=== PATIENT | male | born 1935 | race Caucasian/White ===

== ENCOUNTER 2018-08-21 09:19 | Inpatient (IN) | payer MEDICARE, OTHER ==
[2018-08-21] MEDS ORDERED: Albuterol/Ipratropium NEB.SOL* Albuterol 2.5 MG/Ipratropium 0.5 MG 3 ML INH ONE (09:34)
--- OUTSIDE RECORDS SUMMARY | 2018-08-21 09:43 | XMS REPORT | Continuity of Care Document ---
:1935 External Reference #:[id number] Author Name Gina Harding Care Team Providers Name Role Phone Kulwant Bowling D.O. Primary Care Physician Unavailable Payers Date Identification Numbers Payment Provider Subscriber Policy Number: [id number] Medicare Jack Fernando PayID: [id number] [address] [place] [address] Policy Number: [id number] For Life Jack Fernando PayID: [id number] [address] [place] [address] Advance Directives Description No Information Available Problems Description No Information Family History Date Family Member(s) Observation Comments Father Lung Cancer Was a smoker Father due to Lung Cancer () Mother Asthma Mother due to Asthma () Siblings 4 2 brothers and 2 sisters One brother has hx of colon cancer Social History Type Date Description Comments Sex Unknown Marital Status Lives With Daughter Occupation Retired Tobacco Use Start: Unknown End: Former Cigarette Smoker Smoked 4 ppd for 70 Unknown years Smoking Status Reviewed: 08/03/18 Former Cigarette Smoker Smoked 4 ppd for 70 years ETOH Use Denies alcohol use Tobacco Use Start: Unknown End: Patient is a former Unknown smoker Recreational Drug Use Denies Drug Use Exercise Type/Frequency Does not exercise Allergies, Adverse Reactions, Alerts Date Description Reaction Status Severity Comments 04/12/2018 Cefdinir Active 04/12/2018 Morphine Active 04/12/2018 Gabapentin Active Medications Medication Date Status Form Strength Qnty SIG Indications Ordering Provider Prednisone 06/04/ Active Tablets 10mg 60tab 1 tab in J44.1 Blanca 2019 s the morning RADHA David Anoro Ellipta 04/23/ Active Aerosol 62.5-25mc 60uni 1 J44.9 Ileana 2017 g/Inh ts inhalation Celia, MD daily Metoprolol 04/13/ Active Tablets ER 25mg 30tab 1 by mouth Ileana Succinate ER 2018 24HR s every day MD Celia Nebusal 04/12/ Active Nebulizer 3% 480ml 1 unit J47.9 Ileana 2018 twice daily MD Celia Prednisone 04/12/ Active Tablets 5mg 30tab 1 tab by J44.1 Ileana 2017 s mouth every MD Celia day every morning Linezolid 04/12/ Active Tablets 600mg 14tab 1 tab daily J44.1 Ileana 2018 s for 2 weeks MD Celia Furosemide / Active Tablets 40mg 1 by mouth Unknown 0000 every day Allopurinol / Active Tablets 300mg 1 by mouth Unknown 0000 every day Tamsulosin HCL / Active Capsules 0.4mg 1 by mouth Unknown 0000 every day Carisoprodol / Active Tablets 350mg 1 by mouth Unknown 0000 twice a day as needed spasm Tramadol HCL / Active Tablets 50mg 1-2 tablets Unknown 0000 by mouth every 6 hours as needed pain Eliquis / Active Tablets 5mg 1 by mouth Unknown 0000 twice a day Buspirone HCL / Active Tablets 10mg take 2 Unknown 0000 tablets by mouth two times daily As needed Promethazine / Active Tablets 25mg 1 by mouth Unknown HCL 0000 every 8 hours as needed nausea with headache Potassium / Active Tablets ER 10Meq 1 by mouth Unknown Chloride ER 0000 every day Famotidine / Active Tablets 20mg 1 by mouth Unknown 0000 every day Prilosec OTC / Active Tablets DR 20mg 1 by mouth Unknown 0000 every day Megestrol / Active Tablets 40mg 1 by mouth Unknown Acetate 0000 tid As needed Ipratropium / Active Solution 0.5-2.5(3 1 unit Unknown [place] 0000 )mg/3ML every 6 rol Sulfate hours as needed Proair HFA / Active Aerosol 108(90Bas 2 puffs by Unknown 0000 e) mouth every mcg/Act 4 hours as needed Oxygen / Active Misc please use Unknown 0000 o2 at 3l/min at night MGP / Active prn Unknown 0000 Polyethylene 00/00/ Active Packet 3350NF as needed Unknown Glycol 3350 0000 Centrum Silver / Active Tablets 1 by mouth Unknown 0000 every day Metoprolol 04/12/ Hx Tablets ER 25mg 90tab 1 by mouth Ileana Succinate 2017 - 24HR s every day MD Celia 2017 Citalopram / Hx Tablets 10mg 1 by mouth Unknown Hydrobromide 0000 - every day 2018 Mupirocin / Hx Ointment 2% apply once Unknown 0000 - daily to 2018 Spiriva / Hx Aerosol 2.5mcg/Ac 2 puffs Unknown Respimat 0000 - t every day 2017 Immunizations Description No Information Available Vital Signs Date Vital Result Comment 08/03/2018 8:54am Height 70 inches 5'10" Weight 201.00 lb Heart Rate 80 /min BP Systolic Sitting 136 mmHg Lue large cuff BP Diastolic Sitting 72 mmHg Lue large cuff Respiratory Rate 16 /min O2 % BldC Oximetry 94 % BMI (Body Mass Index) 28.8 kg/m2 06/04/2018 8:45am Height 70 inches 5'10" Weight 187.00 lb Heart Rate 92 /min BP Systolic Sitting 128 mmHg Lue regular cuff BP Diastolic Sitting 78 mmHg Lue regular cuff Respiratory Rate 16 /min O2 % BldC Oximetry 92 % 2LPM BMI (Body Mass Index) 26.8 kg/m2 04/12/2018 1:53pm Height 70 inches 5'10" Weight 178.00 lb Heart Rate 72 /min BP Systolic Sitting 110 mmHg BP Diastolic Sitting 62 mmHg Respiratory Rate 14 /min O2 % BldC Oximetry 94 % on 2 L pulse BMI (Body Mass Index) 25.5 kg/m2 Neck Circumference in inches 16 Results Description No Information Available Procedures Date Code Description Status 07/23/2018 68653 Diffusing Capacity Completed 07/23/2018 94736 Plethysmography Determination Lung Volumes & Per Airway Completed Resist 07/23/2018 06537 Pulmonary Function><Bronchodil Completed 05/28/2018 40181 Holter Monitor Review (24 hr) review & interp only Completed Encounters Type Date Location Provider Dx Diagnosis Office Visit 08/03/2018 [facility] Yang, J44.9 Chronic obstructive 9:15a [facility] Of pulmonary disease, 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 Take 5mg every other day for 1 week, then discontinue.R09.02 [id number] Bronchiectasis, uncomplicated
[2018-08-21] MEDS ORDERED: Levofloxacin 750 MG IVPREMIX(* 750 MG/150 ML BAG IVPB ONE (10:04)
[2018-08-21] MEDS ORDERED: ED Piperacillin/Tazobac 3.375 3.375 GM/100 ML PREMIX.SET IVPB ONE (10:04)
[2018-08-21] MEDS ORDERED: Vancomycin(*) 1,250 MG in NS 0.9% 250 ML* 250 ML IVPB ONE (10:04)
[2018-08-21 10:11] LABS: ABS Basophils 0.1 10^3/ul (0-0.2); ABS Eosinophils 0.4 10^3/ul (0-0.6); ABS Lymphocytes 1.9 10^3/ul (1.0-4.8); ABS Monocytes 1.1 10^3/ul (0-0.8); ABS Neutrophils 5.5 10^3/ul (1.5-7.7); ABS Nucleated RBC 0 10^3/ul; Eosinophil % 4.8 %; Hematocrit 34 % (36-46); Hemoglobin 10.9 g/dL (14.0-18.0); Lymphocyte % 21.1 %; Mean Corpuscular HGB Conc 32 g/dL (31-36); Mean Corpuscular Hemoglobin 30 pg (27-31); Mean Corpuscular Volume 95 fL (80-94); Mean Platelet Volume 7.7 fL (7.4-10.4); Nucleated Red Blood Cells % 0; Platelet Count 373 10^3/uL (150-450); Red Blood Count 3.58 10^6 /uL (4.18-5.48); Red Cell Distribution Width 16 % (10.5-15); White Blood Count 9.1 10^3/uL (3.5-10.8)
[2018-08-21 10:23] LABS: INR 1.51 (0.82-1.09)
[2018-08-21 10:29] LABS: Albumin 3.6 g/dL (3.2-5.2); Albumin/Globulin Ratio 1.1 (1-3); BUN/Creatinine Ratio 18.9 (8-20); C Reactive Protein 15.94 mg/L (<8.01); Calcium 9.3 mg/dL (8.6-10.3); EGFR African American 35.5 (>60); EGFR Non-African American 29.3 (>60); Globulin 3.4 g/dL (2-4); Potassium 4.9 mmol/L (3.5-5.0); Total Bilirubin 0.3 mg/dL (0.2-1.0)
[2018-08-21 10:31] LABS: Troponin I 0.05 ng/mL (<0.04)
[2018-08-21 10:34] LABS: Influenza A Molecular NEGATIVE (Negative); Influenza B Molecular NEGATIVE (Negative)
--- NOTE | 2018-08-21 11:52 | ED ---
Respiratory - HPI Summary HPI Summary: Patient is an 83-year-old male presenting to the ED from Dr. Yang's office with respiratory distress. She states she would like to have him admitted. He states over the past one week he has been having worsening shortness of breath with increased cough with production of yellow and green phlegm. He is unable to sleep through the night due to his respiratory distress. He remains on 3 L O2 and he states despite this he continues to feel short of breath. He denies any chest pain or palpitations. 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 fib. He denies any fevers, however is endorsing sweats and chills. He denies any weakness, but states his shortness of breath is making him difficult to complete day-to-day tasks. He lives at home. He has recently been placed on steroids with his last dose 1 week ago. He was also placed on antibiotics within the last 2 months. He states he has been dealing with these symptoms since last July. - History of Current Complaint Chief Complaint: EDShortnessOfBreath Stated Complaint: LUNG ISSUES PER FAMILY Time Seen by Provider: 08/21/18 09:25 Hx Obtained From: Patient Onset/Duration: Sudden Onset Timing: Constant Initial Severity: Severe Current Severity: Severe Pain Intensity: 0 Character: Cough (Productive) Sputum Amount: Small Sputum Color: Yellow Aggravating Factor(s): Nothing Alleviating Factor(s): Nothing Associated Signs and Symptoms: Negative - Risk Factors Status Asthmaticus Risk Factors: Recent Steroids Cardiac Risk Factors: Hypertension, Elevated Lipids Pseudomonas Risk Factors: Chronic Lung Disease - And chronic steroid use Tuberculosis Risk Factors: Corticosteriod Use - Additional Pertinent History Oxygen Devices Used Prior to Hospitalization: Nasal Cannula - 3 Recent Echo: No Recent Stress Test: No - Allergy/Home Medications Allergies/Adverse Reactions: Allergies Allergy/AdvReac Type Severity Reaction Status Date / Time cefdinir Allergy Unknown Verified 08/21/18 09:29 Reaction Details gabapentin Allergy Unknown Verified 08/21/18 09:29 Reaction Details morphine Allergy Unknown Verified 08/21/18 09:29 Reaction Details Home Medications: Home Medications ANORO 62.5/25 Ellipta DEVICE (NF) 1 inh DAILY 08/21/18 [History Confirmed ] Allopurinol TAB* [Zyloprim 300 MG TAB*] 300 mg PO DAILY 08/21/18 [History Confirmed 08/21/18] Apixaban* [Eliquis*] 5 mg PO BID 08/21/18 [History Confirmed 08/21/18] Carisoprodol TAB* [Soma TAB*] 350 mg PO BID PRN 08/21/18 [History Confirmed ] Duoneb (Albuterol 2.5 MG/Ipratropium 0.5 MG) 1 unit INH Q6H PRN 08/21/18 [ History Confirmed 08/21/18] Furosemide TAB* [Lasix TAB*] 40 mg PO DAILY 08/21/18 [History Confirmed 08/21/18 ] Megestrol Acetate 40 mg PO BID 08/21/18 [History Confirmed 08/21/18] Metoprolol Succinate XL TAB* [Toprol XL TAB*] 25 mg PO DAILY 08/21/18 [History Confirmed 08/21/18] Multivit-Min/FA/Lycopen/Lutein [Centrum Silver Men Tablet] 1 tab PO DAILY [History Confirmed 08/21/18] Omeprazole Magnesium [Prilosec] 20 mg PO DAILY 08/21/18 [History Confirmed 08/21] Potassium Chlor TAB* [Klor Con ER TAB 10 MEQ*] 1 tab PO EVERY OTHER DAY [History Confirmed 08/21/18] Proair Respiclick 2 puff INH Q4H PRN 08/21/18 [History Confirmed 08/21/18] Promethazine TAB* [Phenergan Tab*] 1 tab PO Q8H PRN 08/21/18 [History Confirmed 08/21/18] Tamsulosin CAP* [Flomax CAP*] 0.4 mg PO DAILY 08/21/18 [History Confirmed ] busPIRone TAB* [Buspar TAB*] 2 tab PO BID PRN 08/21/18 [History Confirmed ] traMADol TAB* [Ultram*] 50 mg PO Q6HR PRN 08/21/18 [History Confirmed 08/21/18] PMH/Surg Hx/FS Hx/Imm Hx Previously Healthy: No - bronchiectasis and chronic lung disease Respiratory History: Reports: Hx Chronic Obstructive Pulmonary Disease (COPD) Denies: Hx Asthma - Immunization History Date of Influenza Vaccine: 03/2018 Hx Pertussis Vaccination: No Immunizations Up to Date: Yes Infectious Disease History: No Infectious Disease History: Denies: Traveled Outside the [place] in Last 30 Days - Social History Occupation: Unemployed Lives: With Family Alcohol Use: None Hx Substance Use: No Substance Use Type: Reports: None Hx Tobacco Use: Yes Smoking Status (MU): Former Smoker Review of Systems Constitutional: Negative Negative: Fever, Chills, Fatigue Negative: Palpitations, Chest Pain Respiratory: Other Positive: Cough Negative: Abdominal Pain, Vomiting, Diarrhea, Nausea Genitourinary: Negative Positive: no symptoms reported, see HPI Negative: Arthralgia, Myalgia Skin: Negative Neurological: Negative All Other Systems Reviewed And Are Negative: Yes Physical Exam - Summary Physical Exam Summary: Appears in acute respiratory distress Unable to speak in full sentences Triage Information Reviewed: Yes Vital Signs On Initial Exam: Initial Vitals Temp Pulse Resp BP Pulse Ox 98.4 F 94 20 153/90 91 08/21/18 09:26 08/21/18 09:26 08/21/18 09:26 08/21/18 09:26 08/21/18 09:26 Vital Signs Reviewed: Yes Appearance: Positive: Ill-Appearing Head/Face: Positive: Normal Head/Face Inspection Neck: Positive: No Lymphadenopathy Respiratory/Lung Sounds: Positive: Breath Sounds Present, Rhonchi, Unable to speak in full sentences, Fatigue Cardiovascular: Positive: Pulses are Symmetrical in both Upper and Lower Extremities Musculoskeletal: Positive: Normal, Strength/ROM Intact Neurological: Positive: Speech Normal Psychiatric: Positive: Affect/Mood Appropriate Diagnostics - Vital Signs Vital Signs Temp Pulse Resp BP Pulse Ox 08/21/18 09:45 80 22 126/75 94 08/21/18 09:38 20 08/21/18 09:34 75 18 99 08/21/18 09:30 80 13 156/67 95 08/21/18 09:26 98.4 F 94 20 153/90 91 - Laboratory Lab Results: Lab Results 08/21/18 08/21/18 08/21/18 Range/Units 09:57 09:57 09:57 WBC 9.1 (3.5-10.8) 10^3/uL RBC 3.58 L (4.18-5.48) 10^6 /uL Hgb 10.9 L (14.0-18.0) g/dL Hct 34 L (36-46) % MCV 95 H (80-94) fL MCH 30 (27-31) pg MCHC 32 (31-36) g/dL RDW 16 H (10.5-15) % Plt Count 373 (150-450) 10^3/uL MPV 7.7 (7.4-10.4) fL Neut % (Auto) 61.0 % Lymph % (Auto) 21.1 % [place] % (Auto) 11.9 % Eos % (Auto) 4.8 % Baso % (Auto) 1.2 % Absolute Neuts (auto) 5.5 (1.5-7.7) 10^3/ul Absolute Lymphs (auto) 1.9 (1.0-4.8) 10^3/ul Absolute Monos (auto) 1.1 H (0-0.8) 10^3/ul Absolute Eos (auto) 0.4 (0-0.6) 10^3/ul Absolute Basos (auto) 0.1 (0-0.2) 10^3/ul Absolute Nucleated RBC 0 10^3/ul Nucleated RBC % 0 INR (Anticoag Therapy) 1.51 H (0.82-1.09) Sodium 139 (135-145) mmol/L Potassium 4.9 (3.5-5.0) mmol/L Chloride 106 (101-111) mmol/L Carbon Dioxide 26 (22-32) mmol/L Anion Gap 7 (2-11) mmol/L BUN 41 H (6-24) mg/dL Creatinine 2.17 H (0.67-1.17) mg/dL Est GFR ( Amer) 35.5 (>60) Est GFR (Non-Af Amer) 29.3 (>60) BUN/Creatinine Ratio 18.9 (8-20) Glucose 87 (70-100) mg/dL Lactic Acid (0.5-2.0) mmol/L Calcium 9.3 (8.6-10.3) mg/dL Total Bilirubin 0.30 (0.2-1.0) mg/dL AST 16 (13-39) U/L ALT 12 (7-52) U/L Alkaline Phosphatase 107 H (34-104) U/L Troponin I 0.05 H* (<0.04) ng/mL C-Reactive Protein 15.94 H (<8.01) mg/L B-Natriuretic Peptide (<=100) pg/mL Total Protein 7.0 (6.4-8.9) g/dL Albumin 3.6 (3.2-5.2) g/dL Globulin 3.4 (2-4) g/dL Albumin/Globulin Ratio 1.1 (1-3) Influenza A (Rapid) (Negative) Influenza B (Rapid) (Negative) 08/21/18 08/21/18 08/21/18 Range/Units 09:57 09:57 09:57 WBC (3.5-10.8) 10^3/uL RBC (4.18-5.48) 10^6 /uL Hgb (14.0-18.0) g/dL Hct (36-46) % MCV (80-94) fL MCH (27-31) pg MCHC (31-36) g/dL RDW (10.5-15) % Plt Count (150-450) 10^3/uL MPV (7.4-10.4) fL Neut % (Auto) % Lymph % (Auto) % [place] % (Auto) % Eos % (Auto) % Baso % (Auto) % Absolute Neuts (auto) (1.5-7.7) 10^3/ul Absolute Lymphs (auto) (1.0-4.8) 10^3/ul Absolute Monos (auto) (0-0.8) 10^3/ul Absolute Eos (auto) (0-0.6) 10^3/ul Absolute Basos (auto) (0-0.2) 10^3/ul Absolute Nucleated RBC 10^3/ul Nucleated RBC % INR (Anticoag Therapy) (0.82-1.09) Sodium (135-145) mmol/L Potassium (3.5-5.0) mmol/L Chloride (101-111) mmol/L Carbon Dioxide (22-32) mmol/L Anion Gap (2-11) mmol/L BUN (6-24) mg/dL Creatinine (0.67-1.17) mg/dL Est GFR ( Amer) (>60) Est GFR (Non-Af Amer) (>60) BUN/Creatinine Ratio (8-20) Glucose (70-100) mg/dL Lactic Acid 1.4 (0.5-2.0) mmol/L Calcium (8.6-10.3) mg/dL Total Bilirubin (0.2-1.0) mg/dL AST (13-39) U/L ALT (7-52) U/L Alkaline Phosphatase (34-104) U/L Troponin I (<0.04) ng/mL C-Reactive Protein (<8.01) mg/L B-Natriuretic Peptide 21 (<=100) pg/mL Total Protein (6.4-8.9) g/dL Albumin (3.2-5.2) g/dL Globulin (2-4) g/dL Albumin/Globulin Ratio (1-3) Influenza A (Rapid) Negative (Negative) Influenza B (Rapid) Negative (Negative) Result Diagrams: 08/21/18 09:57 08/21/18 09:57 Lab Statement: Any lab studies that have been ordered have been reviewed, and results considered in the medical decision making process. Disposition - Course Course Of Treatment: During his course of treatment, the patient is evaluated for worsening shortness of breath over the past 1 week. He denies any fevers, sweats, chills. He does have a history of MRSA. He was at Dr. Yang's office today due to worsening shortness of breath and was sent here for further evaluation. Dr. Yang states she would like him admitted and have serial DuoNeb 's placed. She is also recommending broad-spectrum antibiotics. On arrival, he is noted to be 90% on room air and 95% on 3 L. He appears to be in respiratory distress however and is having cough with production. Sputum culture ordered. MRSA nasal swab and strep pneumo antigen ordered. Chest x- ray shows fibrotic changes with no evidence of a pneumonia. He is at risk for pseudomonas as he has a history of bronchiectasis, recent steroid use and recent antibiotics use so on arrival he is given Levaquin, Zosyn and albuterol for broad-spectrum coverage. He is also given 2 DuoNeb's well in the ED. He is feeling somewhat improved, however discussed case with Dr. Peters, hospitalist who agrees to admit for further evaluation of this shortness of breath. - Differential Dx - Cardiopulmonary Differential Diagnoses - Cardiopulmonary: Other - Pneumonia, shortness of breath , strep pneumo, influenza - Diagnoses Provider Diagnoses: Shortness of breath - Physician Notifications Discussed Care Of Patient With: Teresa Peters Instructed by Provider To: Admit As Inpatient - Critical Care Time Critical Care Time: 30-74 min Discharge - Sign-Out/Discharge Documenting (check all that apply): Patient Departure Patient Received Moderate/Deep Sedation with Procedure: No - Discharge Plan Condition: Fair Disposition: ADMITTED TO [facility] Referrals: Kulwant Bowling DO [Primary Care Provider] - - Billing Disposition and Condition Condition: FAIR Disposition: Admitted to [facility]
[2018-08-21] MEDS ORDERED: Acetaminophen TAB* 325 MG PO PRN (12:28)
[2018-08-21] MEDS ORDERED: traMADol TAB* 50 MG PO PRN (12:32)
[2018-08-21] MEDS ORDERED: Albuterol HFA INHALER* 8 gm MDI INH PRN (12:32)
[2018-08-21] MEDS ORDERED: Carisoprodol TAB* 350 MG PO PRN (12:32)
[2018-08-21] MEDS ORDERED: Piperacillin/Tazobac (*) 3.375 GM BAG ONE (12:45)
[2018-08-21] MEDS ORDERED: methylPREDNISolone 125 MG* 2 ML VIAL IV ONE (12:58)
[2018-08-21 15:55] LABS: Urine Appearance Clear; Urine Bilirubin Negative (Negative); Urine Blood Negative (Negative); Urine Color Yellow; Urine Glucose Negative (Negative); Urine Ketones Negative (Negative); Urine Nitrite Negative (Negative); Urine Protein Negative (Negative); Urine Specific Gravity 1.012 (1.010-1.030); Urine Urobilinogen Negative (Negative)
--- NOTE | 2018-08-21 16:29 | HP ---
CC: Dr. Bowling; Dr. Yang * HISTORY AND PHYSICAL: DATE OF ADMISSION: 08/21/18 PROVIDER: Sharon Jarrell NP PRIMARY CARE PROVIDER: Dr. Bowling. ATTENDING PHYSICIAN: Dr. Teresa Peters * (dictated by Sharon Jarrell NP). CHIEF COMPLAINT: Shortness of breath. HISTORY OF PRESENT ILLNESS: Mr. Fernando is an 83-year-old male with past medical history significant for COPD; history of an VT, unknown when; history of DVT diagnosed in December of 2017, currently on Eliquis; history of MRSA in the right lower leg; history of BPH; GERD; chronic kidney disease, stage 3, who presented to the emergency room from Dr. Yang's office with complaints of progressively worsening shortness of breath. The patient reports that he has had increased shortness of breath for 2 to 3 weeks that has progressively become worse. He reports increased sputum production, increased cough with, he reports, yellow sputum. He also reports fevers on and off for approximately 2 weeks, increased fatigue, and decreased appetite for the past week. He also reports chest pain associated with cough and tenderness to the left side of the chest with palpation. Daughter reports the patient has had O2 saturations on 3 L at home of 86% to 88%. She also reports that the patient is chronically on O2 at 3 L 24 hours a day. Due to progressively worsening shortness of breath and recommendations by Dr. Yang, he presented to the emergency room for further evaluation. While in the emergency room, the patient had routine lab work drawn. He was found to have an elevated troponin of 0.05. The patient denies any chest pain other than with cough. He also had a chest x-ray that showed pulmonary fibrosis with COPD. Labs appeared to be at baseline for his kidney disease. At this time, we were asked to admit him due to his increased shortness of breath. PAST MEDICAL HISTORY: 1. COPD. 2. History of coronary artery disease, questionable VT in the past. 3. History of DVT, diagnosed last December of 2017, on chronic Eliquis. 4. MRSA of the right lower leg, diagnosed in 2018. 5. History of BPH. 6. GERD. 7. Chronic kidney disease, stage 3. PAST SURGICAL HISTORY: 1. Back surgery x3. 2. Right heel cancer removed. 3. History of vein stripping. 4. Bronchoscopy x2, last in March. 5. Tonsillectomy. MEDICATIONS: Home medications include: 1. Tramadol 50 mg p.o. q.6 hours p.r.n. pain. 2. Tamsulosin 0.4 mg p.o. at bedtime. 3. Omeprazole 20 mg p.o. daily. 4. Multivitamin 1 tablet p.o. daily. 5. Megestrol acetate 40 mg p.o. b.i.d. 6. Furosemide 40 mg p.o. daily. 7. ProAir RespiClick 2 puffs q.4 hours p.r.n. 8. DuoNeb 1 nebulizer every 6 hours as needed for shortness of breath. 9. Potassium chloride 1 tablet every other day. 10. Apixaban 5 mg p.o. b.i.d. 11. Soma 350 mg p.o. at bedtime. 12. Allopurinol 300 mg p.o. daily. 13. Metoprolol succinate 12.5 mg p.o. b.i.d. 14. Anoro 1 inhaled daily. ALLERGIES: Allergy to CEFDINIR, GABAPENTIN, and MORPHINE. FAMILY HISTORY: Father with a history of pacemaker at age 72, from lung cancer at the age of 79. No reported history of diabetes within the family. Cancer, father with history of lung cancer and at age 79. Brother from colon cancer at age 50. SOCIAL HISTORY: The patient reports that he quit smoking approximately 1 year ago. Prior to that, he smoked 2 to 4 packs a day for 70 years. Denies any alcohol or illicit drug use. He is retired. He is . He currently lives with his stepdaughter. Surrogate decision maker in the event he is unable to make his own decisions is his stepdaughter, Reyna. He is a full code. REVIEW OF SYSTEMS: He does report fevers on and off for x2 weeks with decreased appetite and does report chest pain with cough. No edema to the lower extremities. He does report productive cough with yellow secretions that has increased. He reports progressively worsening shortness of breath. Denies any hemoptysis. No nausea, vomiting, diarrhea, or abdominal pain. Denies any gross hematuria, dysuria, or focal weakness or sensory loss. He does report chronic right leg weakness. He does wear brace to the right ankle. Denies any visual complaints, dysphagia, arthralgias, myalgias, rashes, lesions, open sores , psychosis, or anxiety. PHYSICAL EXAMINATION GENERAL: At this time, Mr. Fernando is an 83-year-old male. He is alert and oriented, sitting on the stretcher in the emergency room. He is well developed and well nourished. He does appear to be mildly short of breath, resting on the stretcher. VITAL SIGNS: Blood pressure is 137/65, heart rate is 85, respirations 17, O2 saturation is 96%, temperature is 98.4. He is on 3 L nasal cannula. HEENT: Head is atraumatic, normocephalic. Eyes: EOMs are intact. Sclerae anicteric and not pale. Oral mucosa appeared to be moist. NECK: Supple. LUNGS: With expiratory wheezes and scattered rhonchi throughout. Respirations are slightly labored. He is on O2 at 3 L nasal cannula. ABDOMEN: Soft and nontender. Bowel sounds are present x4. EXTREMITIES: He is able to move all 4 extremities. There is no clubbing or cyanosis. NEUROLOGIC: He is awake, alert, and oriented x3. Speech is clear and thought process is intact. There are no gross focal deficits. SKIN: Dry and intact. DIAGNOSTIC STUDIES/LAB DATA: WBC is 9.1, RBC is 3.58, hemoglobin 10.9, hematocrit 34, platelet count was 373. INR was 1.51. Sodium 139, potassium 4.9 , chloride 106, carbon dioxide 26, anion gap of 7, BUN of 41, creatinine 2.17 which renal function appears to be at baseline, GFR 29.3, glucose 87, lactic acid 1.4, calcium 9.3. Total bili 0.30, AST is 16, ALT is 12, alkaline phosphatase was 107. Troponin was 0.05. C-reactive protein was 15.94. BNP 21. Flu A and B were both negative. He had a chest x-ray, radiologist's impression: COPD with pulmonary fibrotic changes. He had an electrocardiogram, which showed sinus rhythm with PACs. ASSESSMENT AND PLAN: Mr. Fernando is an 83-year-old male with past medical history significant for reported myocardial infarction in the past; chronic obstructive pulmonary disease; deep venous thrombosis, diagnosed in December of 2017, on chronic Eliquis; history of methicillin-resistant Staphylococcus aureus in the right leg; benign prostatic hyperplasia; gastroesophageal reflux disease; chronic kidney disease, stage 3, who presented to the emergency room from Dr. Yang's office with increased shortness of breath. He will be admitted inpatient for: 1. Acute on chronic hypoxic respiratory failure, suspect this is related to chronic obstructive pulmonary disease exacerbation. We will continue O2 via nasal cannula 3 L and albuterol and Atrovent nebulizers as needed for shortness of breath. We will continue his home inhalers as previously prescribed. I will give him Solu-Medrol 125 mg IV x1 and then continue him on 40 mg IV q.12 hours. He will be placed on Levaquin 750 mg IV q.48 hours due to his renal function. The patient does have a history of methicillin-resistant Staphylococcus aureus related to cellulitis in his right lower leg in the past. If his symptoms do not appear to be improving, I would recommend adding vancomycin or coverage for methicillin- resistant Staphylococcus aureus. 2. Elevated troponins. I suspect this is related to demand ischemia from his chronic obstructive pulmonary disease and increased respiratory distress. We will continue to trend his troponins and repeat an EKG in the a.m. 3. Chronic kidney disease, stage 3. We will continue to monitor his BMP. We will repeat the BMP in the morning and adjust medications as needed. 4. History of coronary artery disease. We will continue metoprolol 12.5 mg p.o. b.i.d. as previously prescribed. 5. He has a history of methicillin-resistant Staphylococcus aureus in a leg wound. He has no current open leg wounds at this time. 6. FEN. He can have a regular diet. 7. Code status: He is a full code. 8. DVT prophylaxis: We will continue him on Eliquis 2.5 mg p.o. b.i.d. as a renal dosing as the patient is over the age of 82 and creatinine is above 1.5. 9. Disposition: The patient will be inpatient on medical telemetry floor and placed on tele. TIME SPENT: On this admission was approximately 60 minutes, greater than half that time was spent at the bedside obtaining my history and physical, the other half of the time was spent going my plan of care and implementing my plan of care. I have discussed this with my attending, Dr. Teresa Peters; she is in agreement with my plan. SHARON JARRELL, GEOPHYSICAL PROSPECTING PERMIT AGENT [id number]/[facility] #: [id number] [facility] FACILITYCecil
[2018-08-21] MEDS: Multivitamins/Minerals TAB PO SCH (17:38)
[2018-08-21] MEDS: Tamsulosin CAP* 0.4 MG PO SCH (20:46)
[2018-08-21] MEDS: Metoprolol Succinate XL TAB* 25 MG PO SCH (20:47)
[2018-08-21] MEDS: Apixaban* 2.5 MG TAB PO SCH (20:47)
[2018-08-21] MEDS: Albuterol/Ipratropium NEB.SOL* Albuterol 2.5 MG/Ipratropium 0.5 MG 3 ML INH PRN (21:33)
[2018-08-22] MEDS: Melatonin 3 MG TAB PO PRN ×2 (00:03→22:00)
[2018-08-22] MEDS ORDERED: methylPREDNISolone SOD 40 MG* 1 ML VIAL IV SCH (06:00)
[2018-08-22 06:35] LABS: Hematocrit 34 % (36-46); Hemoglobin 11.1 g/dL (14.0-18.0); Mean Corpuscular HGB Conc 33 g/dL (31-36); Mean Corpuscular Hemoglobin 31 pg (27-31); Mean Corpuscular Volume 94 fL (80-94); Mean Platelet Volume 7.6 fL (7.4-10.4); Platelet Count 348 10^3/uL (150-450); Red Cell Distribution Width 15 % (10.5-15); White Blood Count 7.6 10^3/uL (3.5-10.8)
[2018-08-22 06:55] LABS: BUN/Creatinine Ratio 17.6 (8-20); Calcium 9.7 mg/dL (8.6-10.3); EGFR African American 35.7 (>60); EGFR Non-African American 29.5 (>60)
[2018-08-22 06:57] LABS: ABS Basophils 0 10^3/ul (0-0.2); ABS Eosinophils 0 10^3/ul (0-0.6); ABS Lymphocytes 0.9 10^3/ul (1.0-4.8); ABS Monocytes 0.1 10^3/ul (0-0.8); ABS Neutrophils 6.4 10^3/ul (1.5-7.7); ABS Nucleated RBC 0 10^3/ul; Eosinophil % 0 %; Lymphocyte % 11.6 %; Nucleated Red Blood Cells % 0; Potassium 5.5 mmol/L (3.5-5.0)
[2018-08-22] MEDS: PTO: Umeclidin/Vilant 62.5 MDI 62.5/25 mcg 14 INH ELLIPTA DEVICE INH SCH (07:29)
[2018-08-22] MEDS: Albuterol/Ipratropium NEB.SOL* Albuterol 2.5 MG/Ipratropium 0.5 MG 3 ML INH PRN (07:30)
[2018-08-22] MEDS: Pantoprazole TAB * 40 MG TAB PO SCH (08:42)
[2018-08-22] MEDS: Metoprolol Succinate XL TAB* 25 MG PO SCH ×2 (08:42→21:59)
[2018-08-22] MEDS: Allopurinol TAB* 300 MG PO SCH (08:42)
[2018-08-22] MEDS: Apixaban* 2.5 MG TAB PO SCH ×2 (08:42→22:00)
[2018-08-22] MEDS: Albuterol/Ipratropium NEB.SOL* Albuterol 2.5 MG/Ipratropium 0.5 MG 3 ML INH SCH ×3 (15:50→23:13)
[2018-08-22] MEDS: guaiFENesin ER TAB 600 MG PO SCH ×2 (16:02→22:00)
[2018-08-22] MEDS: methylPREDNISolone SOD 40 MG* 1 ML VIAL IV SCH ×2 (16:02→22:00)
[2018-08-22] MEDS ORDERED: NS 0.9% 500 ML* 500 ML IV ONE (17:16)
[2018-08-22] MEDS: Multivitamins/Minerals TAB PO SCH (17:21)
--- NOTE | 2018-08-22 17:49 | PN ---
Subjective Date of Service: 08/22/18 Interval History: Patient seen and examined. Extremely wheezy this AM, per RN, no nebs were given overnight. Breath sounds course, patient is tachypneic. Afebrile, no sweats or chills. Course cough, not very productive, patient has difficulty expectorating. Objective Active Medications: Acetaminophen (Tylenol Tab*) 650 mg PO Q4H PRN PRN Reason: FEVER/PAIN Albuterol (Ventolin 2.5 Mg/3 Ml Neb.Sarah*) 2.5 mg INH [id number] AWAKE PRN PRN Reason: sob/wheezing Albuterol (Ventolin Hfa Inhaler*) 2 puff INH Q6H PRN PRN Reason: SHORTNESS OF BREATH Albuterol/Ipratropium (Duoneb (Albuterol 2.5 Mg/Ipratropium 0.5 Mg)) 1 neb INH [id number] AWAKE [facility] Stop: 08/23/18 03:01 Last Admin: 08/22/18 15:50 Dose: 1 neb Allopurinol (Zyloprim Tab*) 300 mg PO DAILY [facility] Last Admin: 08/22/18 08:42 Dose: 300 mg Apixaban (Eliquis*) 2.5 mg PO BID [facility] Last Admin: 08/22/18 08:42 Dose: 2.5 mg Buspirone HCl (Buspar Tab*) 20 mg PO BID PRN PRN Reason: PAIN Carisoprodol (Soma Tab*) 350 mg PO BID PRN PRN Reason: SPASMS Last Admin: 08/21/18 20:46 Dose: 350 mg Guaifenesin (Mucinex*) 600 mg PO BID [facility] Last Admin: 08/22/18 16:02 Dose: 600 mg Sodium Chloride (Ns 0.9% 500 Ml*) 500 mls @ 500 mls/hr IV ONCE ONE Stop: 08/22/18 18:15 Melatonin (Melatonin) 3 mg PO BEDTIME PRN PRN Reason: SLEEP Last Admin: 08/22/18 00:03 Dose: 3 mg Methylprednisolone Sodium Succinate (Solu-Medrol 40 Mg) 40 mg IV Q8H [facility] Last Admin: 08/22/18 16:02 Dose: 40 mg Metoprolol Succinate (Toprol Xl Tab*) 12.5 mg PO BID [facility] Last Admin: 08/22/18 08:42 Dose: 12.5 mg Multivitamins/Minerals (Theragran/Minerals Tab*) 1 tab PO 1800 [facility] Last Admin: 08/22/18 17:21 Dose: 1 tab Pantoprazole Sodium (Protonix Tab*) 40 mg PO DAILY [facility] Last Admin: 08/22/18 08:42 Dose: 40 mg Pharmacy Consult (Zosyn Per Pharmacy*) 1 note FOLLOW UP .ZOSYN PER PHARMACY [facility] Potassium Chloride (Klor Con Er Tab*) 10 meq PO EVERY OTHER DAY [facility] Tamsulosin HCl (Flomax Cap*) 0.4 mg PO BEDTIME [facility] Last Admin: 08/21/18 20:46 Dose: 0.4 mg Tramadol HCl (Ultram*) 50 mg PO Q6HR PRN PRN Reason: PAIN Umeclidinium/Vilanterol (Anoro 62.5/25 Ellipta Device (Nf)) 1 inh INH DAILY [facility] Last Admin: 08/22/18 07:29 Dose: Not Given Vital Signs - 8 hr 08/22/18 08/22/18 08/22/18 11:03 11:05 15:13 Temperature 98.1 F 98.3 F 97.6 F Pulse Rate 107 107 105 Respiratory 14 14 20 Rate Blood Pressure 134/63 134/63 142/62 (mmHg) O2 Sat by Pulse 95 95 96 Oximetry Oxygen Devices in Use Now: Nasal Cannula Appearance: alert, appears tired, NAD Eyes: No Scleral Icterus, PERRLA Ears/Nose/Mouth/Throat: NL Teeth, Lips, Gums, Mucous Membranes Moist Neck: NL Appearance and Movements; NL JVP, Trachea Midline Respiratory: - - tachypneic, course throughout lung jackson, poor air entry, wheezes Cardiovascular: NL Sounds; No Murmurs; No JVD - tachycardia Abdominal: NL Sounds; No Tenderness; No Distention Extremities: No Edema, No Clubbing, Cyanosis Skin: No Rash or Ulcers Neurological: Alert and Oriented x 3, NL Sensation Nutrition: Taking PO's Result Diagrams: 08/22/18 06:08 08/22/18 06:08 Additional Lab and Data: Lab Results 08/21/18 08/21/18 08/21/18 Range/Units 09:57 09:57 09:57 WBC 9.1 (3.5-10.8) 10^3/uL RBC 3.58 L (4.18-5.48) 10^6 /uL Hgb 10.9 L (14.0-18.0) g/dL Hct 34 L (36-46) % MCV 95 H (80-94) fL MCH 30 (27-31) pg MCHC 32 (31-36) g/dL RDW 16 H (10.5-15) % Plt Count 373 (150-450) 10^3/uL MPV 7.7 (7.4-10.4) fL Neut % (Auto) 61.0 % Lymph % (Auto) 21.1 % [place] % (Auto) 11.9 % Eos % (Auto) 4.8 % Baso % (Auto) 1.2 % Absolute Neuts (auto) 5.5 (1.5-7.7) 10^3/ul Absolute Lymphs (auto) 1.9 (1.0-4.8) 10^3/ul Absolute Monos (auto) 1.1 H (0-0.8) 10^3/ul Absolute Eos (auto) 0.4 (0-0.6) 10^3/ul Absolute Basos (auto) 0.1 (0-0.2) 10^3/ul Absolute Nucleated RBC 0 10^3/ul Nucleated RBC % 0 INR (Anticoag Therapy) 1.51 H (0.82-1.09) Sodium 139 (135-145) mmol/L Potassium 4.9 (3.5-5.0) mmol/L Chloride 106 (101-111) mmol/L Carbon Dioxide 26 (22-32) mmol/L Anion Gap 7 (2-11) mmol/L BUN 41 H (6-24) mg/dL Creatinine 2.17 H (0.67-1.17) mg/dL Est GFR ( Amer) 35.5 (>60) Est GFR (Non-Af Amer) 29.3 (>60) BUN/Creatinine Ratio 18.9 (8-20) Glucose 87 (70-100) mg/dL Lactic Acid (0.5-2.0) mmol/L Calcium 9.3 (8.6-10.3) mg/dL Total Bilirubin 0.30 (0.2-1.0) mg/dL AST 16 (13-39) U/L ALT 12 (7-52) U/L Alkaline Phosphatase 107 H (34-104) U/L Troponin I 0.05 H* (<0.04) ng/mL C-Reactive Protein 15.94 H (<8.01) mg/L B-Natriuretic Peptide (<=100) pg/mL Total Protein 7.0 (6.4-8.9) g/dL Albumin 3.6 (3.2-5.2) g/dL Globulin 3.4 (2-4) g/dL Albumin/Globulin Ratio 1.1 (1-3) Influenza A (Rapid) (Negative) Influenza B (Rapid) (Negative) 08/21/18 08/21/18 08/21/18 Range/Units 09:57 09:57 09:57 WBC (3.5-10.8) 10^3/uL RBC (4.18-5.48) 10^6 /uL Hgb (14.0-18.0) g/dL Hct (36-46) % MCV (80-94) fL MCH (27-31) pg MCHC (31-36) g/dL RDW (10.5-15) % Plt Count (150-450) 10^3/uL MPV (7.4-10.4) fL Neut % (Auto) % Lymph % (Auto) % [place] % (Auto) % Eos % (Auto) % Baso % (Auto) % Absolute Neuts (auto) (1.5-7.7) 10^3/ul Absolute Lymphs (auto) (1.0-4.8) 10^3/ul Absolute Monos (auto) (0-0.8) 10^3/ul Absolute Eos (auto) (0-0.6) 10^3/ul Absolute Basos (auto) (0-0.2) 10^3/ul Absolute Nucleated RBC 10^3/ul Nucleated RBC % INR (Anticoag Therapy) (0.82-1.09) Sodium (135-145) mmol/L Potassium (3.5-5.0) mmol/L Chloride (101-111) mmol/L Carbon Dioxide (22-32) mmol/L Anion Gap (2-11) mmol/L BUN (6-24) mg/dL Creatinine (0.67-1.17) mg/dL Est GFR ( Amer) (>60) Est GFR (Non-Af Amer) (>60) BUN/Creatinine Ratio (8-20) Glucose (70-100) mg/dL Lactic Acid 1.4 (0.5-2.0) mmol/L Calcium (8.6-10.3) mg/dL Total Bilirubin (0.2-1.0) mg/dL AST (13-39) U/L ALT (7-52) U/L Alkaline Phosphatase (34-104) U/L Troponin I (<0.04) ng/mL C-Reactive Protein (<8.01) mg/L B-Natriuretic Peptide 21 (<=100) pg/mL Total Protein (6.4-8.9) g/dL Albumin (3.2-5.2) g/dL Globulin (2-4) g/dL Albumin/Globulin Ratio (1-3) Influenza A (Rapid) Negative (Negative) Influenza B (Rapid) Negative (Negative) Microbiology and Other Data: Microbiology 08/21/18 17:23 Aerobic Blood Culture - Preliminary Blood Venous No Growth Day 1 Anaerobic Blood Culture - Preliminary No Growth Day 1 08/21/18 09:57 Aerobic Blood Culture - Preliminary Blood Venous No Growth Day 1 Anaerobic Blood Culture - Preliminary No Growth Day 1 08/21/18 23:00 Legionella Urinary Antigen - Final Urine Negative Legionella Antigen 08/21/18 15:30 Streptococcus pneumoniae Ag Screen - Final Urine Negative S. pneumo Antigen 08/21/18 13:05 Nasal Screen MRSA (PCR) - Final Nasal Mrsa Detected 08/21/18 09:57 Gram Stain - Final Sputum Diagnostic Imaging: Patient Name: LETICIA MARIO Medical Record#: [id number] Ordering Physician: Romelia VALDEZ Acct.#: [id number] : 1935 Age: 83 Sex: M Location: EMERGENCY DEPARTMENT Exam Date: 08/21/18930 ADM Status: REG ER Order Information: CHEST PA & LAT 2 S Accession Number: [id number] CPT: 07778 HISTORY: SOB/PNA COMPARISONS: July 23, 2018 VIEWS: 4: Frontal dual-energy and lateral views of the chest. FINDINGS: CARDIOMEDIASTINAL SILHOUETTE: The cardiomediastinal silhouette is normal. ELDA: The elda are normal. PLEURA: The costophrenic angles are sharp. No pleural abnormalities are noted. LUNG PARENCHYMA: There is hyperinflation with flattening of the diaphragm and expansion of the AP diameter of the chest. There is a diffuse pattern of fine reticular opacification. ABDOMEN: The upper abdomen is clear. There is no subphrenic gas. BONES AND SOFT TISSUES: No bone or soft tissue abnormalities are noted. OTHER: None. IMPRESSION: COPD WITH PULMONARY FIBROTIC CHANGES. <Electronically signed by Ajith Pirce MD in OV> 08/21/18 1018 Dictated By: Ajith Price MD Dictated Date/Time: 08/21/18 1018 Transcribed Date/Time: 08/21/18 1016 Copy to: CC:Kulwant Bowling DO; Jonathan Hayden MD; Romelia VALDEZ Imaging [facility] - [place] [facility] [address] [address] ph ([phone]) ph ([phone]) ph ([phone]) This report is only to be considered final once signed by the Provider(s) as displayed in the "<Electronically Signed by >" field (s). Absence of a signature indicates the report is in a draft status and still needs to be finalized. In the event this document was created by someone other than the signing Provider, the individual initiating the document will be listed in the "Entered by:" or "Dictated by:" jackson. 1 of 1 Assess/Plan/Problems-Billing Assessment: This is an 83 year old male with history of tobacco abuse and lung fibrosis that presented to Dr. Yang yesterday with complaints of SOB increasing over 2 weeks and was referred to ED for admission. - Patient Problems (1) COPD (chronic obstructive pulmonary disease) Code(s): J44.9 - CHRONIC OBSTRUCTIVE PULMONARY DISEASE, UNSPECIFIED SNOMED Code(s): 94035655 Comment: - Severe, with exacerbation and fibrotic changes - Follows with Dr. Yang as an outpatient - Change nebs to Q4H through today scheduled with flutter valve - Add mucinex BID - DC levaquin given advanced age and renal disease - Follow sputum culture but will cover for strep, pseudomonas, MRSA with empiric zosyn and renally dosed vanco - Increase IV steroids to Q8h (2) History of coronary artery disease Code(s): Z86.79 - PERSONAL HISTORY OF OTHER DISEASES OF THE CIRCULATORY SYSTEM SNOMED Code(s): 701980979 Comment: - With tachycardia since admission which is likely 2/2 hypoxia - Trial small fluid bolus, hold diuretic, BNP<100, continue low dose BB (3) Hx MRSA infection Code(s): Z86.14 - PERSONAL HISTORY OF METHICILLIN RESIS STAPH INFECTION SNOMED Code(s): 221176318 Comment: - RLE wounds are closed - follow sputum culture - continue vanco until culture available (4) CKD (chronic kidney disease) stage 3, GFR 30-59 ml/min Code(s): N18.3 - CHRONIC KIDNEY DISEASE, STAGE 3 (MODERATE) SNOMED Code(s): 137711793 Comment: - Creat 2.16, similar to baseline in March - Give fluid bolus and monitor renal function in AM (5) History of DVT of lower extremity Code(s): Z86.718 - PERSONAL HISTORY OF OTHER VENOUS THROMBOSIS AND EMBOLISM SNOMED Code(s): 124451257 Comment: - Continue eliquis Status and Disposition: Inpatient, 2-3 days treatment for IV atbx and steroids.
[2018-08-22] MEDS ORDERED: Vancomycin per Pharmacy* NOTE FOLLOW UP PRN (17:51)
[2018-08-22] MEDS ORDERED: Zosyn per Pharmacy* NOTE FOLLOW UP SCH (18:00)
[2018-08-22] MEDS ORDERED: ZOSYN 3.375 GM x ONE DOSE over 30 miuntes IVPB ×2 (18:00)
[2018-08-22] MEDS ORDERED: Vancomycin 1500 MG IV - x ONCE IVPB ONE ×2 (18:30)
[2018-08-22] MEDS: busPIRone TAB* 10 MG PO PRN (22:00)
[2018-08-22] MEDS: Tamsulosin CAP* 0.4 MG PO SCH (22:00)
[2018-08-22] MEDS: ZOSYN 3.375 GM Q8H per EXTENDED INFUSION IVPB SCH ×2 (23:39)
[2018-08-23] MEDS: Albuterol/Ipratropium NEB.SOL* Albuterol 2.5 MG/Ipratropium 0.5 MG 3 ML INH SCH (03:23)
[2018-08-23] MEDS: ZOSYN 3.375 GM Q8H per EXTENDED INFUSION IVPB SCH ×6 (05:41→23:27)
[2018-08-23] MEDS: methylPREDNISolone SOD 40 MG* 1 ML VIAL IV SCH ×3 (08:12→23:25)
[2018-08-23] MEDS: Metoprolol Succinate XL TAB* 25 MG PO SCH ×2 (08:12→21:21)
[2018-08-23] MEDS: Pantoprazole TAB * 40 MG TAB PO SCH (08:12)
[2018-08-23] MEDS: guaiFENesin ER TAB 600 MG PO SCH ×2 (08:12→21:20)
[2018-08-23] MEDS: Allopurinol TAB* 300 MG PO SCH (08:12)
[2018-08-23] MEDS: Potassium Chlor TAB* 10 MEQ TAB.ER PO SCH (08:13)
[2018-08-23] MEDS: Apixaban* 2.5 MG TAB PO SCH ×2 (08:13→21:22)
[2018-08-23] MEDS: PTO: Umeclidin/Vilant 62.5 MDI 62.5/25 mcg 14 INH ELLIPTA DEVICE INH SCH ×2 (08:13→10:22)
[2018-08-23] MEDS: Albuterol 2.5 MG/3 ML NEB.SOL* (0.083%) INH PRN ×2 (10:21→20:53)
[2018-08-23] MEDS ORDERED: Levofloxacin 750 MG IVPREMIX(* 750 MG/150 ML BAG IVPB SCH (13:00)
[2018-08-23] MEDS ORDERED: Vancomycin(*) 1,250 MG in NS 0.9% 250 ML* 250 ML IVPB SCH (14:00)
--- NOTE | 2018-08-23 17:38 | PN ---
Subjective Date of Service: 08/23/18 Interval History: Patient seen and examined. No acute overnight events. Patient tolerated nebs overnight and feels his breathing has improved today. Still having trouble expectorating but is less dyspneic. Denies chest pain, no acute SOB and no distress. Denies fevers or chills. No urinary complaints. Objective Active Medications: Acetaminophen (Tylenol Tab*) 650 mg PO Q4H PRN PRN Reason: FEVER/PAIN Albuterol (Ventolin 2.5 Mg/3 Ml Neb.Sarah*) 2.5 mg INH [id number] AWAKE PRN PRN Reason: sob/wheezing Last Admin: 08/23/18 10:21 Dose: 2.5 mg Albuterol (Ventolin Hfa Inhaler*) 2 puff INH Q6H PRN PRN Reason: SHORTNESS OF BREATH Allopurinol (Zyloprim Tab*) 300 mg PO DAILY [facility] Last Admin: 08/23/18 08:12 Dose: 300 mg Apixaban (Eliquis*) 2.5 mg PO BID [facility] Last Admin: 08/23/18 08:13 Dose: 2.5 mg Buspirone HCl (Buspar Tab*) 20 mg PO BID PRN PRN Reason: PAIN Last Admin: 08/22/18 22:00 Dose: 20 mg Carisoprodol (Soma Tab*) 350 mg PO BID PRN PRN Reason: SPASMS Last Admin: 08/21/18 20:46 Dose: 350 mg Guaifenesin (Mucinex*) 600 mg PO BID [facility] Last Admin: 08/23/18 08:12 Dose: 600 mg Piperacillin Sod/Tazobactam (Sod 3.375 gm/ Sodium Chloride) 100 mls @ 25 mls/ hr IVPB Q8H [facility] Last Admin: 08/23/18 14:30 Dose: 25 mls/hr Vancomycin HCl 1,250 mg/ (Sodium Chloride) 250 mls @ 166.667 mls/hr IVPB Q24H [facility] Last Admin: 08/23/18 14:30 Dose: 166.667 mls/hr Melatonin (Melatonin) 3 mg PO BEDTIME PRN PRN Reason: SLEEP Last Admin: 08/22/18 22:00 Dose: 3 mg Methylprednisolone Sodium Succinate (Solu-Medrol 40 Mg) 40 mg IV Q8H [facility] Last Admin: 08/23/18 14:31 Dose: 40 mg Metoprolol Succinate (Toprol Xl Tab*) 12.5 mg PO BID [facility] Last Admin: 08/23/18 08:12 Dose: 12.5 mg Multivitamins/Minerals (Theragran/Minerals Tab*) 1 tab PO 1800 [facility] Last Admin: 08/22/18 17:21 Dose: 1 tab Pantoprazole Sodium (Protonix Tab*) 40 mg PO DAILY [facility] Last Admin: 08/23/18 08:12 Dose: 40 mg Pharmacy Consult (Zosyn Per Pharmacy*) 1 note FOLLOW UP .ZOSYN PER PHARMACY [facility] Pharmacy Consult (Vancomycin Per Pharmacy*) 1 note FOLLOW UP . PRN PRN Reason: PER PROTOCOL Pharmacy Profile Note (Vancomycin Trough Check) 1 note FOLLOW UP 1330 ONE Stop: 08/25/18 13:31 Potassium Chloride (Klor Con Er Tab*) 10 meq PO EVERY OTHER DAY [facility] Last Admin: 08/23/18 08:13 Dose: 10 meq Tamsulosin HCl (Flomax Cap*) 0.4 mg PO BEDTIME [facility] Last Admin: 08/22/18 22:00 Dose: 0.4 mg Tramadol HCl (Ultram*) 50 mg PO Q6HR PRN PRN Reason: PAIN Umeclidinium/Vilanterol (Anoro 62.5/25 Ellipta Device (Nf)) 1 inh INH DAILY [facility] Last Admin: 08/23/18 10:22 Dose: 1 inh Vital Signs - 8 hr 08/23/18 08/23/18 08/23/18 10:24 11:17 14:00 Temperature 97.8 F 97.5 F Pulse Rate 102 109 103 Respiratory 16 17 20 Rate Blood Pressure 124/54 136/63 (mmHg) O2 Sat by Pulse 97 96 95 Oximetry Oxygen Devices in Use Now: Nasal Cannula Appearance: alert, NAD Eyes: No Scleral Icterus, PERRLA Ears/Nose/Mouth/Throat: NL Teeth, Lips, Gums, Mucous Membranes Moist Neck: NL Appearance and Movements; NL JVP, Trachea Midline Respiratory: - - course breath sounds bilaterally with improved air entry at the apices and upper airways, still with wheeze Cardiovascular: NL Sounds; No Murmurs; No JVD - mild tachycardia Abdominal: NL Sounds; No Tenderness; No Distention Extremities: No Clubbing, Cyanosis, - - mild edema Skin: No Rash or Ulcers Neurological: Alert and Oriented x 3, NL Sensation Nutrition: Taking PO's Result Diagrams: 08/22/18 06:08 08/22/18 17:39 Additional Lab and Data: Lab Results 08/21/18 08/21/18 08/21/18 Range/Units 09:57 09:57 09:57 WBC 9.1 (3.5-10.8) 10^3/uL RBC 3.58 L (4.18-5.48) 10^6 /uL Hgb 10.9 L (14.0-18.0) g/dL Hct 34 L (36-46) % MCV 95 H (80-94) fL MCH 30 (27-31) pg MCHC 32 (31-36) g/dL RDW 16 H (10.5-15) % Plt Count 373 (150-450) 10^3/uL MPV 7.7 (7.4-10.4) fL Neut % (Auto) 61.0 % Lymph % (Auto) 21.1 % [place] % (Auto) 11.9 % Eos % (Auto) 4.8 % Baso % (Auto) 1.2 % Absolute Neuts (auto) 5.5 (1.5-7.7) 10^3/ul Absolute Lymphs (auto) 1.9 (1.0-4.8) 10^3/ul Absolute Monos (auto) 1.1 H (0-0.8) 10^3/ul Absolute Eos (auto) 0.4 (0-0.6) 10^3/ul Absolute Basos (auto) 0.1 (0-0.2) 10^3/ul Absolute Nucleated RBC 0 10^3/ul Nucleated RBC % 0 INR (Anticoag Therapy) 1.51 H (0.82-1.09) Sodium 139 (135-145) mmol/L Potassium 4.9 (3.5-5.0) mmol/L Chloride 106 (101-111) mmol/L Carbon Dioxide 26 (22-32) mmol/L Anion Gap 7 (2-11) mmol/L BUN 41 H (6-24) mg/dL Creatinine 2.17 H (0.67-1.17) mg/dL Est GFR ( Amer) 35.5 (>60) Est GFR (Non-Af Amer) 29.3 (>60) BUN/Creatinine Ratio 18.9 (8-20) Glucose 87 (70-100) mg/dL Lactic Acid (0.5-2.0) mmol/L Calcium 9.3 (8.6-10.3) mg/dL Total Bilirubin 0.30 (0.2-1.0) mg/dL AST 16 (13-39) U/L ALT 12 (7-52) U/L Alkaline Phosphatase 107 H (34-104) U/L Troponin I 0.05 H* (<0.04) ng/mL C-Reactive Protein 15.94 H (<8.01) mg/L B-Natriuretic Peptide (<=100) pg/mL Total Protein 7.0 (6.4-8.9) g/dL Albumin 3.6 (3.2-5.2) g/dL Globulin 3.4 (2-4) g/dL Albumin/Globulin Ratio 1.1 (1-3) Influenza A (Rapid) (Negative) Influenza B (Rapid) (Negative) 08/21/18 08/21/18 08/21/18 Range/Units 09:57 09:57 09:57 WBC (3.5-10.8) 10^3/uL RBC (4.18-5.48) 10^6 /uL Hgb (14.0-18.0) g/dL Hct (36-46) % MCV (80-94) fL MCH (27-31) pg MCHC (31-36) g/dL RDW (10.5-15) % Plt Count (150-450) 10^3/uL MPV (7.4-10.4) fL Neut % (Auto) % Lymph % (Auto) % [place] % (Auto) % Eos % (Auto) % Baso % (Auto) % Absolute Neuts (auto) (1.5-7.7) 10^3/ul Absolute Lymphs (auto) (1.0-4.8) 10^3/ul Absolute Monos (auto) (0-0.8) 10^3/ul Absolute Eos (auto) (0-0.6) 10^3/ul Absolute Basos (auto) (0-0.2) 10^3/ul Absolute Nucleated RBC 10^3/ul Nucleated RBC % INR (Anticoag Therapy) (0.82-1.09) Sodium (135-145) mmol/L Potassium (3.5-5.0) mmol/L Chloride (101-111) mmol/L Carbon Dioxide (22-32) mmol/L Anion Gap (2-11) mmol/L BUN (6-24) mg/dL Creatinine (0.67-1.17) mg/dL Est GFR ( Amer) (>60) Est GFR (Non-Af Amer) (>60) BUN/Creatinine Ratio (8-20) Glucose (70-100) mg/dL Lactic Acid 1.4 (0.5-2.0) mmol/L Calcium (8.6-10.3) mg/dL Total Bilirubin (0.2-1.0) mg/dL AST (13-39) U/L ALT (7-52) U/L Alkaline Phosphatase (34-104) U/L Troponin I (<0.04) ng/mL C-Reactive Protein (<8.01) mg/L B-Natriuretic Peptide 21 (<=100) pg/mL Total Protein (6.4-8.9) g/dL Albumin (3.2-5.2) g/dL Globulin (2-4) g/dL Albumin/Globulin Ratio (1-3) Influenza A (Rapid) Negative (Negative) Influenza B (Rapid) Negative (Negative) Microbiology and Other Data: Microbiology 08/21/18 17:23 Aerobic Blood Culture - Preliminary Blood Venous No Growth Day 1 Anaerobic Blood Culture - Preliminary No Growth Day 1 08/21/18 09:57 Aerobic Blood Culture - Preliminary Blood Venous No Growth Day 1 Anaerobic Blood Culture - Preliminary No Growth Day 1 08/21/18 23:00 Legionella Urinary Antigen - Final Urine Negative Legionella Antigen 08/21/18 15:30 Streptococcus pneumoniae Ag Screen - Final Urine Negative S. pneumo Antigen 08/21/18 13:05 Nasal Screen MRSA (PCR) - Final Nasal Mrsa Detected 08/21/18 09:57 Gram Stain - Final Sputum Diagnostic Imaging: Patient Name: LETICIA MARIO Medical Record#: [id number] Ordering Physician: Romelia VALDEZ Acct.#: [id number] : 1935 Age: 83 Sex: M Location: EMERGENCY DEPARTMENT Exam Date: 08/21/18930 ADM Status: REG ER Order Information: CHEST PA & LAT 2 VWS Accession Number: [id number] CPT: 98780 HISTORY: SOB/PNA COMPARISONS: July 23, 2018 VIEWS: 4: Frontal dual-energy and lateral views of the chest. FINDINGS: CARDIOMEDIASTINAL SILHOUETTE: The cardiomediastinal silhouette is normal. ELDA: The elda are normal. PLEURA: The costophrenic angles are sharp. No pleural abnormalities are noted. LUNG PARENCHYMA: There is hyperinflation with flattening of the diaphragm and expansion of the AP diameter of the chest. There is a diffuse pattern of fine reticular opacification. ABDOMEN: The upper abdomen is clear. There is no subphrenic gas. BONES AND SOFT TISSUES: No bone or soft tissue abnormalities are noted. OTHER: None. IMPRESSION: COPD WITH PULMONARY FIBROTIC CHANGES. <Electronically signed by Ajith Price MD in [place]> 08/21/18 1018 Dictated By: Ajith Price MD Dictated Date/Time: 08/21/18 1018 Transcribed Date/Time: 08/21/18 1016 Copy to: CC:Kulwant Bowling DO; Jonathan Hayden MD; Romelia VALDEZ Imaging - [facility] Imaging - [facility] Imaging - [facility] [address] [address] ph ([phone]) ph ([phone]) ph ([phone]) This report is only to be considered final once signed by the Provider(s) as displayed in the "<Electronically Signed by >" field (s). Absence of a signature indicates the report is in a draft status and still needs to be finalized. In the event this document was created by someone other than the signing Provider, the individual initiating the document will be listed in the "Entered by:" or "Dictated by:" jackson. 1 of 1 Assess/Plan/Problems-Billing Assessment: This is an 83 year old male with history of tobacco abuse and lung fibrosis that presented to Dr. Yang yesterday with complaints of SOB increasing over 2 weeks and was referred to ED for admission. - Patient Problems (1) COPD (chronic obstructive pulmonary disease) Code(s): J44.9 - CHRONIC OBSTRUCTIVE PULMONARY DISEASE, UNSPECIFIED SNOMED Code(s): 55896659 Comment: - Severe, with exacerbation and fibrotic changes - Follows with Dr. Yang as an outpatient - Continue duonebs, now PRN with flutter valve, mucinex BID - DC levaquin given advanced age and renal disease - continue to cover for strep, pseudomonas, MRSA with empiric zosyn and renally dosed vanco until sputum culture available - Continue IV steroids to Q8h (2) History of coronary artery disease Code(s): Z86.79 - PERSONAL HISTORY OF OTHER DISEASES OF THE CIRCULATORY SYSTEM SNOMED Code(s): 787181445 Comment: - With tachycardia since admission which is likely 2/2 hypoxia - Trial small fluid bolus, hold diuretic, BNP<100, continue low dose BB (3) Hx MRSA infection Code(s): Z86.14 - PERSONAL HISTORY OF METHICILLIN RESIS STAPH INFECTION SNOMED Code(s): 922626885 Comment: - RLE wounds are closed - follow sputum culture - continue vanco until culture available (4) CKD (chronic kidney disease) stage 3, GFR 30-59 ml/min Code(s): N18.3 - CHRONIC KIDNEY DISEASE, STAGE 3 (MODERATE) SNOMED Code(s): 648795222 Comment: - Creat 2.16, similar to baseline in March - Give fluid bolus and monitor renal function in AM (5) History of DVT of lower extremity Code(s): Z86.718 - PERSONAL HISTORY OF OTHER VENOUS THROMBOSIS AND EMBOLISM SNOMED Code(s): 707407226 Comment: - Continue eliquis Status and Disposition: Inpatient, 2-3 days treatment for IV atbx and steroids.
[2018-08-23] MEDS: Multivitamins/Minerals TAB PO SCH (18:09)
[2018-08-23] MEDS: Tamsulosin CAP* 0.4 MG PO SCH (21:20)
[2018-08-23] MEDS: busPIRone TAB* 10 MG PO PRN (21:21)
[2018-08-23] MEDS: Melatonin 3 MG TAB PO PRN (21:22)
[2018-08-24] MEDS: ZOSYN 3.375 GM Q8H per EXTENDED INFUSION IVPB SCH ×4 (05:16→13:19)
[2018-08-24] MEDS: Albuterol 2.5 MG/3 ML NEB.SOL* (0.083%) INH PRN ×2 (05:48→23:16)
[2018-08-24 06:08] LABS: ABS Basophils 0 10^3/ul (0-0.2); ABS Eosinophils 0 10^3/ul (0-0.6); ABS Lymphocytes 1.1 10^3/ul (1.0-4.8); ABS Monocytes 0.5 10^3/ul (0-0.8); ABS Neutrophils 11.4 10^3/ul (1.5-7.7); ABS Nucleated RBC 0 10^3/ul; Eosinophil % 0.1 %; Hematocrit 34 % (36-46); Hemoglobin 10.4 g/dL (14.0-18.0); Lymphocyte % 8.2 %; Mean Corpuscular HGB Conc 30 g/dL (31-36); Mean Corpuscular Hemoglobin 30 pg (27-31); Mean Corpuscular Volume 100 fL (80-94); Mean Platelet Volume 7.9 fL (7.4-10.4); Nucleated Red Blood Cells % 0.1; Platelet Count 355 10^3/uL (150-450); Red Blood Count 3.43 10^6 /uL (4.18-5.48); Red Cell Distribution Width 16 % (10.5-15)
[2018-08-24 06:17] LABS: Albumin 3.4 g/dL (3.2-5.2); Albumin/Globulin Ratio 1.1 (1-3); BUN/Creatinine Ratio 22.2 (8-20); Calcium 8.8 mg/dL (8.6-10.3); EGFR African American 41.6 (>60); EGFR Non-African American 34.4 (>60); Globulin 3.2 g/dL (2-4); Potassium 4.3 mmol/L (3.5-5.0); Total Bilirubin 0.3 mg/dL (0.2-1.0); Total Protein 6.6 g/dL (6.4-8.9)
[2018-08-24] MEDS: PTO: Umeclidin/Vilant 62.5 MDI 62.5/25 mcg 14 INH ELLIPTA DEVICE INH SCH ×2 (08:26→08:30)
[2018-08-24] MEDS: Apixaban* 2.5 MG TAB PO SCH ×2 (08:30→20:50)
[2018-08-24] MEDS: methylPREDNISolone SOD 40 MG* 1 ML VIAL IV SCH ×2 (08:30→15:40)
[2018-08-24] MEDS: Pantoprazole TAB * 40 MG TAB PO SCH (08:30)
[2018-08-24] MEDS: Metoprolol Succinate XL TAB* 25 MG PO SCH ×2 (08:30→20:50)
[2018-08-24] MEDS: guaiFENesin ER TAB 600 MG PO SCH ×2 (08:30→20:51)
[2018-08-24] MEDS: Allopurinol TAB* 300 MG PO SCH (08:31)
[2018-08-24] MEDS: Sulfamethox/Trimethoprim SS 400/80* TAB PO SCH ×2 (12:17→20:50)
[2018-08-24] MEDS ORDERED: Magnesium Sulfate 1 GM IV* 1 GM/100 ML BAG IV ONE (14:52)
--- NOTE | 2018-08-24 17:35 | PN ---
Subjective Date of Service: 08/24/18 Interval History: Patient seen and examined. Feeling much improved, able to expectorate sputum today and feels breathing is better. Denies fevers or chills, no headache, no acute SOB, no chest pains. No further complaints. Remains oxygen dependent. Objective Active Medications: Acetaminophen (Tylenol Tab*) 650 mg PO Q4H PRN PRN Reason: FEVER/PAIN Albuterol (Ventolin 2.5 Mg/3 Ml Neb.Sarah*) 2.5 mg INH [id number] AWAKE PRN PRN Reason: sob/wheezing Last Admin: 08/24/18 05:48 Dose: 2.5 mg Albuterol (Ventolin Hfa Inhaler*) 2 puff INH Q6H PRN PRN Reason: SHORTNESS OF BREATH Allopurinol (Zyloprim Tab*) 300 mg PO DAILY [facility] Last Admin: 08/24/18 08:31 Dose: 300 mg Apixaban (Eliquis*) 2.5 mg PO BID [facility] Last Admin: 08/24/18 08:30 Dose: 2.5 mg Buspirone HCl (Buspar Tab*) 20 mg PO BID PRN PRN Reason: PAIN Last Admin: 08/23/18 21:21 Dose: 20 mg Carisoprodol (Soma Tab*) 350 mg PO BID PRN PRN Reason: SPASMS Last Admin: 08/21/18 20:46 Dose: 350 mg Guaifenesin (Mucinex*) 600 mg PO BID [facility] Last Admin: 08/24/18 08:30 Dose: 600 mg Melatonin (Melatonin) 3 mg PO BEDTIME PRN PRN Reason: SLEEP Last Admin: 08/23/18 21:22 Dose: 3 mg Metoprolol Succinate (Toprol Xl Tab*) 12.5 mg PO BID [facility] Last Admin: 08/24/18 08:30 Dose: 12.5 mg Multivitamins/Minerals (Theragran/Minerals Tab*) 1 tab PO 1800 [facility] Last Admin: 08/23/18 18:09 Dose: 1 tab Pantoprazole Sodium (Protonix Tab*) 40 mg PO DAILY [facility] Last Admin: 08/24/18 08:30 Dose: 40 mg Potassium Chloride (Klor Con Er Tab*) 10 meq PO EVERY OTHER DAY [facility] Last Admin: 08/23/18 08:13 Dose: 10 meq Prednisone (Deltasone Tab*) 60 mg PO DAILY [facility] Tamsulosin HCl (Flomax Cap*) 0.4 mg PO BEDTIME [facility] Last Admin: 08/23/18 21:20 Dose: 0.4 mg Tramadol HCl (Ultram*) 50 mg PO Q6HR PRN PRN Reason: PAIN Trimethoprim/Sulfamethoxazole (Bactrim Ss 400/80 Tab*) 1 tab PO BID [facility] Last Admin: 08/24/18 12:17 Dose: 1 tab Umeclidinium/Vilanterol (Anoro 62.5/25 Ellipta Device (Nf)) 1 inh INH DAILY [facility] Last Admin: 08/24/18 08:30 Dose: 1 inh Vital Signs - 8 hr 08/24/18 08/24/18 10:57 16:21 Temperature 97.4 F 97.6 F Pulse Rate 67 86 Respiratory 18 18 Rate Blood Pressure 133/70 130/63 (mmHg) O2 Sat by Pulse 97 97 Oximetry Oxygen Devices in Use Now: Nasal Cannula Appearance: alert, NAD Eyes: No Scleral Icterus, PERRLA Ears/Nose/Mouth/Throat: NL Teeth, Lips, Gums, Mucous Membranes Moist Neck: NL Appearance and Movements; NL JVP, Trachea Midline Respiratory: Symmetrical Chest Expansion and Respiratory Effort, - - remains course with improved aeration, less wheeze, still with scattered rhonchi Cardiovascular: NL Sounds; No Murmurs; No JVD, RRR, No Edema Abdominal: NL Sounds; No Tenderness; No Distention Extremities: No Edema, No Clubbing, Cyanosis Skin: No Rash or Ulcers, No Nodules or Sclerosis Neurological: Alert and Oriented x 3 Nutrition: Taking PO's Result Diagrams: 08/24/18 05:32 08/24/18 05:32 Additional Lab and Data: Lab Results 08/21/18 08/21/18 08/21/18 Range/Units 09:57 09:57 09:57 WBC 9.1 (3.5-10.8) 10^3/uL RBC 3.58 L (4.18-5.48) 10^6 /uL Hgb 10.9 L (14.0-18.0) g/dL Hct 34 L (36-46) % MCV 95 H (80-94) fL MCH 30 (27-31) pg MCHC 32 (31-36) g/dL RDW 16 H (10.5-15) % Plt Count 373 (150-450) 10^3/uL MPV 7.7 (7.4-10.4) fL Neut % (Auto) 61.0 % Lymph % (Auto) 21.1 % [place] % (Auto) 11.9 % Eos % (Auto) 4.8 % Baso % (Auto) 1.2 % Absolute Neuts (auto) 5.5 (1.5-7.7) 10^3/ul Absolute Lymphs (auto) 1.9 (1.0-4.8) 10^3/ul Absolute Monos (auto) 1.1 H (0-0.8) 10^3/ul Absolute Eos (auto) 0.4 (0-0.6) 10^3/ul Absolute Basos (auto) 0.1 (0-0.2) 10^3/ul Absolute Nucleated RBC 0 10^3/ul Nucleated RBC % 0 INR (Anticoag Therapy) 1.51 H (0.82-1.09) Sodium 139 (135-145) mmol/L Potassium 4.9 (3.5-5.0) mmol/L Chloride 106 (101-111) mmol/L Carbon Dioxide 26 (22-32) mmol/L Anion Gap 7 (2-11) mmol/L BUN 41 H (6-24) mg/dL Creatinine 2.17 H (0.67-1.17) mg/dL Est GFR ( Amer) 35.5 (>60) Est GFR (Non-Af Amer) 29.3 (>60) BUN/Creatinine Ratio 18.9 (8-20) Glucose 87 (70-100) mg/dL Lactic Acid (0.5-2.0) mmol/L Calcium 9.3 (8.6-10.3) mg/dL Total Bilirubin 0.30 (0.2-1.0) mg/dL AST 16 (13-39) U/L ALT 12 (7-52) U/L Alkaline Phosphatase 107 H (34-104) U/L Troponin I 0.05 H* (<0.04) ng/mL C-Reactive Protein 15.94 H (<8.01) mg/L B-Natriuretic Peptide (<=100) pg/mL Total Protein 7.0 (6.4-8.9) g/dL Albumin 3.6 (3.2-5.2) g/dL Globulin 3.4 (2-4) g/dL Albumin/Globulin Ratio 1.1 (1-3) Influenza A (Rapid) (Negative) Influenza B (Rapid) (Negative) 08/21/18 08/21/18 08/21/18 Range/Units 09:57 09:57 09:57 WBC (3.5-10.8) 10^3/uL RBC (4.18-5.48) 10^6 /uL Hgb (14.0-18.0) g/dL Hct (36-46) % MCV (80-94) fL MCH (27-31) pg MCHC (31-36) g/dL RDW (10.5-15) % Plt Count (150-450) 10^3/uL MPV (7.4-10.4) fL Neut % (Auto) % Lymph % (Auto) % [place] % (Auto) % Eos % (Auto) % Baso % (Auto) % Absolute Neuts (auto) (1.5-7.7) 10^3/ul Absolute Lymphs (auto) (1.0-4.8) 10^3/ul Absolute Monos (auto) (0-0.8) 10^3/ul Absolute Eos (auto) (0-0.6) 10^3/ul Absolute Basos (auto) (0-0.2) 10^3/ul Absolute Nucleated RBC 10^3/ul Nucleated RBC % INR (Anticoag Therapy) (0.82-1.09) Sodium (135-145) mmol/L Potassium (3.5-5.0) mmol/L Chloride (101-111) mmol/L Carbon Dioxide (22-32) mmol/L Anion Gap (2-11) mmol/L BUN (6-24) mg/dL Creatinine (0.67-1.17) mg/dL Est GFR ( Amer) (>60) Est GFR (Non-Af Amer) (>60) BUN/Creatinine Ratio (8-20) Glucose (70-100) mg/dL Lactic Acid 1.4 (0.5-2.0) mmol/L Calcium (8.6-10.3) mg/dL Total Bilirubin (0.2-1.0) mg/dL AST (13-39) U/L ALT (7-52) U/L Alkaline Phosphatase (34-104) U/L Troponin I (<0.04) ng/mL C-Reactive Protein (<8.01) mg/L B-Natriuretic Peptide 21 (<=100) pg/mL Total Protein (6.4-8.9) g/dL Albumin (3.2-5.2) g/dL Globulin (2-4) g/dL Albumin/Globulin Ratio (1-3) Influenza A (Rapid) Negative (Negative) Influenza B (Rapid) Negative (Negative) Microbiology and Other Data: Microbiology 08/21/18 17:23 Aerobic Blood Culture - Preliminary Blood Venous No Growth Day 1 Anaerobic Blood Culture - Preliminary No Growth Day 1 08/21/18 09:57 Aerobic Blood Culture - Preliminary Blood Venous No Growth Day 1 Anaerobic Blood Culture - Preliminary No Growth Day 1 08/21/18 23:00 Legionella Urinary Antigen - Final Urine Negative Legionella Antigen 08/21/18 15:30 Streptococcus pneumoniae Ag Screen - Final Urine Negative S. pneumo Antigen 08/21/18 13:05 Nasal Screen MRSA (PCR) - Final Nasal Mrsa Detected 08/21/18 09:57 Gram Stain - Final Sputum Diagnostic Imaging: Patient Name: LETICIA MARIO Medical Record#: [id number] Ordering Physician: Romelia VALDEZ Acct.#: [id number] : 1935 Age: 83 Sex: M Location: EMERGENCY DEPARTMENT Exam Date: 08/21/18930 ADM Status: REG ER Order Information: CHEST PA & LAT 2 VWS Accession Number: [id number] CPT: 49315 HISTORY: SOB/PNA COMPARISONS: July 23, 2018 VIEWS: 4: Frontal dual-energy and lateral views of the chest. FINDINGS: CARDIOMEDIASTINAL SILHOUETTE: The cardiomediastinal silhouette is normal. ELDA: The elda are normal. PLEURA: The costophrenic angles are sharp. No pleural abnormalities are noted. LUNG PARENCHYMA: There is hyperinflation with flattening of the diaphragm and expansion of the AP diameter of the chest. There is a diffuse pattern of fine reticular opacification. ABDOMEN: The upper abdomen is clear. There is no subphrenic gas. BONES AND SOFT TISSUES: No bone or soft tissue abnormalities are noted. OTHER: None. IMPRESSION: COPD WITH PULMONARY FIBROTIC CHANGES. <Electronically signed by Ajith Price MD in [place]> 08/21/18 1018 Dictated By: Ajith Price MD Dictated Date/Time: 08/21/18 1018 Transcribed Date/Time: 08/21/18 1016 Copy to: CC:Kulwant Bowling DO; Jonathan Hayden MD; Romelia VALDEZ Imaging - [facility] Imaging - [facility] [address] [address] ph ([phone]) ph ([phone]) ph ([phone]) This report is only to be considered final once signed by the Provider(s) as displayed in the "<Electronically Signed by >" field (s). Absence of a signature indicates the report is in a draft status and still needs to be finalized. In the event this document was created by someone other than the signing Provider, the individual initiating the document will be listed in the "Entered by:" or "Dictated by:" jackson. 1 of 1 Assess/Plan/Problems-Billing Assessment: This is an 83 year old male with history of tobacco abuse and lung fibrosis that presented to Dr. Yang with complaints of SOB increasing over 2 weeks and was referred to ED for admission. - Patient Problems (1) COPD (chronic obstructive pulmonary disease) Code(s): J44.9 - CHRONIC OBSTRUCTIVE PULMONARY DISEASE, UNSPECIFIED SNOMED Code(s): 69224709 Comment: - Severe, with exacerbation and fibrotic changes - Follows with Dr. 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, susceptible to levaquin and bactrim, given advanced age and renal disease, levaquin would not be the optimal choice, placed on bactrim after discussing with pharmacy - DC vanco and zosyn - Change off IV steroids to oral prednisone taper to start tomorrow - Continue nebs and inhalers with flutter valve (2) History of coronary artery disease Code(s): Z86.79 - PERSONAL HISTORY OF OTHER DISEASES OF THE CIRCULATORY SYSTEM SNOMED Code(s): 275880223 Comment: - Tachycardia resolved - Continue low dose BB - Restart diuretic at discharge (3) Hx MRSA infection Code(s): Z86.14 - PERSONAL HISTORY OF METHICILLIN RESIS STAPH INFECTION SNOMED Code(s): 245612603 Comment: - RLE wounds are closed - follow sputum culture - continue vanco until culture available (4) CKD (chronic kidney disease) stage 3, GFR 30-59 ml/min Code(s): N18.3 - CHRONIC KIDNEY DISEASE, STAGE 3 (MODERATE) SNOMED Code(s): 415207054 Comment: - Creat 1.89, his baseline is around 2 - Follow AM labs (5) History of DVT of lower extremity Code(s): Z86.718 - PERSONAL HISTORY OF OTHER VENOUS THROMBOSIS AND EMBOLISM SNOMED Code(s): 477143347 Comment: - Continue renally dosed eliquis Status and Disposition: Inpatient, much improvement last 24 hours, may be ready for discharge monday or monday.
[2018-08-24] MEDS: Multivitamins/Minerals TAB PO SCH (20:51)
[2018-08-24] MEDS: Tamsulosin CAP* 0.4 MG PO SCH (20:51)
[2018-08-24] MEDS: Melatonin 3 MG TAB PO PRN (22:59)
[2018-08-25 07:27] LABS: Hematocrit 31 % (36-46); Hemoglobin 10.1 g/dL (14.0-18.0); Mean Corpuscular HGB Conc 32 g/dL (31-36); Mean Corpuscular Hemoglobin 31 pg (27-31); Mean Corpuscular Volume 94 fL (80-94); Mean Platelet Volume 7.7 fL (7.4-10.4); Platelet Count 316 10^3/uL (150-450); Red Blood Count 3.31 10^6 /uL (4.18-5.48); Red Cell Distribution Width 15 % (10.5-15)
[2018-08-25 08:27] LABS: BUN/Creatinine Ratio 23.8 (8-20); Calcium 8.8 mg/dL (8.6-10.3); EGFR African American 41.6 (>60); EGFR Non-African American 34.4 (>60); Potassium 4.2 mmol/L (3.5-5.0)
[2018-08-25] MEDS: PTO: Umeclidin/Vilant 62.5 MDI 62.5/25 mcg 14 INH ELLIPTA DEVICE INH SCH (08:35)
[2018-08-25] MEDS: Potassium Chlor TAB* 10 MEQ TAB.ER PO SCH (08:37)
[2018-08-25] MEDS: Apixaban* 2.5 MG TAB PO SCH (08:37)
[2018-08-25] MEDS: Allopurinol TAB* 300 MG PO SCH (08:38)
[2018-08-25] MEDS: Sulfamethox/Trimethoprim SS 400/80* TAB PO SCH (08:38)
[2018-08-25] MEDS: Metoprolol Succinate XL TAB* 25 MG PO SCH (08:38)
[2018-08-25] MEDS: Pantoprazole TAB * 40 MG TAB PO SCH (08:38)
[2018-08-25] MEDS: guaiFENesin ER TAB 600 MG PO SCH (08:38)
[2018-08-25] MEDS ORDERED: predniSONE TAB* 20 MG PO SCH (09:00)
[2018-08-25] MEDS ORDERED: Vancomycin Trough Check NOTE FOLLOW UP ONE (13:30)
--- NOTE | 2018-08-25 15:01 | PN ---
Subjective Date of Service: 08/25/18 Interval History: Patient reports he feels much better and feels ready to go home. Daughter at bedside and agrees he is at his baseline; she is his principal architect caregiver. Reports he is currently undergoing PT outpatient 2x a week. Ambulated with walker maintaining O2 sats >92% Objective Active Medications: Acetaminophen (Tylenol Tab*) 650 mg PO Q4H PRN PRN Reason: FEVER/PAIN Albuterol (Ventolin 2.5 Mg/3 Ml Neb.Sarah*) 2.5 mg INH [id number] AWAKE PRN PRN Reason: sob/wheezing Last Admin: 08/24/18 23:16 Dose: 2.5 mg Albuterol (Ventolin Hfa Inhaler*) 2 puff INH Q6H PRN PRN Reason: SHORTNESS OF BREATH Allopurinol (Zyloprim Tab*) 300 mg PO DAILY [facility] Last Admin: 08/25/18 08:38 Dose: 300 mg Apixaban (Eliquis*) 2.5 mg PO BID [facility] Last Admin: 08/25/18 08:37 Dose: 2.5 mg Buspirone HCl (Buspar Tab*) 20 mg PO BID PRN PRN Reason: PAIN Last Admin: 08/23/18 21:21 Dose: 20 mg Carisoprodol (Soma Tab*) 350 mg PO BID PRN PRN Reason: SPASMS Last Admin: 08/21/18 20:46 Dose: 350 mg Guaifenesin (Mucinex*) 600 mg PO BID [facility] Last Admin: 08/25/18 08:38 Dose: 600 mg Melatonin (Melatonin) 3 mg PO BEDTIME PRN PRN Reason: SLEEP Last Admin: 08/24/18 22:59 Dose: 3 mg Metoprolol Succinate (Toprol Xl Tab*) 12.5 mg PO BID [facility] Last Admin: 08/25/18 08:38 Dose: 12.5 mg Multivitamins/Minerals (Theragran/Minerals Tab*) 1 tab PO 1800 [facility] Last Admin: 08/24/18 20:51 Dose: 1 tab Pantoprazole Sodium (Protonix Tab*) 40 mg PO DAILY [facility] Last Admin: 08/25/18 08:38 Dose: 40 mg Potassium Chloride (Klor Con Er Tab*) 10 meq PO EVERY OTHER DAY [facility] Last Admin: 08/25/18 08:37 Dose: 10 meq Prednisone (Deltasone Tab*) 60 mg PO DAILY [facility] Last Admin: 08/25/18 08:37 Dose: 60 mg Tamsulosin HCl (Flomax Cap*) 0.4 mg PO BEDTIME [facility] Last Admin: 08/24/18 20:51 Dose: 0.4 mg Tramadol HCl (Ultram*) 50 mg PO Q6HR PRN PRN Reason: PAIN Last Admin: 08/24/18 22:59 Dose: 50 mg Trimethoprim/Sulfamethoxazole (Bactrim Ss 400/80 Tab*) 1 tab PO BID [facility] Last Admin: 08/25/18 08:38 Dose: 1 tab Umeclidinium/Vilanterol (Anoro 62.5/25 Ellipta Device (Nf)) 1 inh INH DAILY [facility] Last Admin: 08/25/18 08:35 Dose: 1 inh Vital Signs - 8 hr 08/25/18 08/25/18 08/25/18 07:58 08:00 11:07 Temperature 97.1 F 97.1 F Pulse Rate 65 72 Respiratory 17 17 17 Rate Blood Pressure 128/60 127/62 (mmHg) O2 Sat by Pulse 97 97 Oximetry Oxygen Devices in Use Now: Nasal Cannula Appearance: eldelry male A+O x3 in NAD Eyes: No Scleral Icterus, PERRLA Ears/Nose/Mouth/Throat: NL Teeth, Lips, Gums, Mucous Membranes Moist Neck: NL Appearance and Movements; NL JVP Respiratory: Clear to Auscultation Cardiovascular: NL Sounds; No Murmurs; No JVD, RRR, No Edema Abdominal: NL Sounds; No Tenderness; No Distention Skin: No Rash or Ulcers, No Nodules or Sclerosis Neurological: Alert and Oriented x 3, NL Gait, NL Muscle Strength and Tone, - - ambulated in hallway with walker independently with minimal assistance Lines/Tubes/Other Access: Clean, Dry and Intact Peripheral IV Nutrition: Taking PO's Result Diagrams: 08/25/18 06:14 08/25/18 06:14 Additional Lab and Data: Lab Results 08/21/18 08/21/18 08/21/18 Range/Units 09:57 09:57 09:57 WBC 9.1 (3.5-10.8) 10^3/uL RBC 3.58 L (4.18-5.48) 10^6 /uL Hgb 10.9 L (14.0-18.0) g/dL Hct 34 L (36-46) % MCV 95 H (80-94) fL MCH 30 (27-31) pg MCHC 32 (31-36) g/dL RDW 16 H (10.5-15) % Plt Count 373 (150-450) 10^3/uL MPV 7.7 (7.4-10.4) fL Neut % (Auto) 61.0 % Lymph % (Auto) 21.1 % [place] % (Auto) 11.9 % Eos % (Auto) 4.8 % Baso % (Auto) 1.2 % Absolute Neuts (auto) 5.5 (1.5-7.7) 10^3/ul Absolute Lymphs (auto) 1.9 (1.0-4.8) 10^3/ul Absolute Monos (auto) 1.1 H (0-0.8) 10^3/ul Absolute Eos (auto) 0.4 (0-0.6) 10^3/ul Absolute Basos (auto) 0.1 (0-0.2) 10^3/ul Absolute Nucleated RBC 0 10^3/ul Nucleated RBC % 0 INR (Anticoag Therapy) 1.51 H (0.82-1.09) Sodium 139 (135-145) mmol/L Potassium 4.9 (3.5-5.0) mmol/L Chloride 106 (101-111) mmol/L Carbon Dioxide 26 (22-32) mmol/L Anion Gap 7 (2-11) mmol/L BUN 41 H (6-24) mg/dL Creatinine 2.17 H (0.67-1.17) mg/dL Est GFR ( Amer) 35.5 (>60) Est GFR (Non-Af Amer) 29.3 (>60) BUN/Creatinine Ratio 18.9 (8-20) Glucose 87 (70-100) mg/dL Lactic Acid (0.5-2.0) mmol/L Calcium 9.3 (8.6-10.3) mg/dL Total Bilirubin 0.30 (0.2-1.0) mg/dL AST 16 (13-39) U/L ALT 12 (7-52) U/L Alkaline Phosphatase 107 H (34-104) U/L Troponin I 0.05 H* (<0.04) ng/mL C-Reactive Protein 15.94 H (<8.01) mg/L B-Natriuretic Peptide (<=100) pg/mL Total Protein 7.0 (6.4-8.9) g/dL Albumin 3.6 (3.2-5.2) g/dL Globulin 3.4 (2-4) g/dL Albumin/Globulin Ratio 1.1 (1-3) Influenza A (Rapid) (Negative) Influenza B (Rapid) (Negative) 08/21/18 08/21/18 08/21/18 Range/Units 09:57 09:57 09:57 WBC (3.5-10.8) 10^3/uL RBC (4.18-5.48) 10^6 /uL Hgb (14.0-18.0) g/dL Hct (36-46) % MCV (80-94) fL MCH (27-31) pg MCHC (31-36) g/dL RDW (10.5-15) % Plt Count (150-450) 10^3/uL MPV (7.4-10.4) fL Neut % (Auto) % Lymph % (Auto) % [place] % (Auto) % Eos % (Auto) % Baso % (Auto) % Absolute Neuts (auto) (1.5-7.7) 10^3/ul Absolute Lymphs (auto) (1.0-4.8) 10^3/ul Absolute Monos (auto) (0-0.8) 10^3/ul Absolute Eos (auto) (0-0.6) 10^3/ul Absolute Basos (auto) (0-0.2) 10^3/ul Absolute Nucleated RBC 10^3/ul Nucleated RBC % INR (Anticoag Therapy) (0.82-1.09) Sodium (135-145) mmol/L Potassium (3.5-5.0) mmol/L Chloride (101-111) mmol/L Carbon Dioxide (22-32) mmol/L Anion Gap (2-11) mmol/L BUN (6-24) mg/dL Creatinine (0.67-1.17) mg/dL Est GFR ( Amer) (>60) Est GFR (Non-Af Amer) (>60) BUN/Creatinine Ratio (8-20) Glucose (70-100) mg/dL Lactic Acid 1.4 (0.5-2.0) mmol/L Calcium (8.6-10.3) mg/dL Total Bilirubin (0.2-1.0) mg/dL AST (13-39) U/L ALT (7-52) U/L Alkaline Phosphatase (34-104) U/L Troponin I (<0.04) ng/mL C-Reactive Protein (<8.01) mg/L B-Natriuretic Peptide 21 (<=100) pg/mL Total Protein (6.4-8.9) g/dL Albumin (3.2-5.2) g/dL Globulin (2-4) g/dL Albumin/Globulin Ratio (1-3) Influenza A (Rapid) Negative (Negative) Influenza B (Rapid) Negative (Negative) Microbiology and Other Data: Microbiology 08/21/18 17:23 Aerobic Blood Culture - Preliminary Blood Venous No Growth Day 1 Anaerobic Blood Culture - Preliminary No Growth Day 1 08/21/18 09:57 Aerobic Blood Culture - Preliminary Blood Venous No Growth Day 1 Anaerobic Blood Culture - Preliminary No Growth Day 1 08/21/18 23:00 Legionella Urinary Antigen - Final Urine Negative Legionella Antigen 08/21/18 15:30 Streptococcus pneumoniae Ag Screen - Final Urine Negative S. pneumo Antigen 08/21/18 13:05 Nasal Screen MRSA (PCR) - Final Nasal Mrsa Detected 08/21/18 09:57 Gram Stain - Final Sputum Diagnostic Imaging: Patient Name: LETICIA MARIO Medical Record#: [id number] Ordering Physician: Romelia VALDEZ Acct.#: [id number] : 1935 Age: 83 Sex: M Location: EMERGENCY DEPARTMENT Exam Date: 08/21/18930 ADM Status: REG ER Order Information: CHEST PA & LAT 2 VWS Accession Number: [id number] CPT: 58182 HISTORY: SOB/PNA COMPARISONS: July 23, 2018 VIEWS: 4: Frontal dual-energy and lateral views of the chest. FINDINGS: CARDIOMEDIASTINAL SILHOUETTE: The cardiomediastinal silhouette is normal. ELDA: The elda are normal. PLEURA: The costophrenic angles are sharp. No pleural abnormalities are noted. LUNG PARENCHYMA: There is hyperinflation with flattening of the diaphragm and expansion of the AP diameter of the chest. There is a diffuse pattern of fine reticular opacification. ABDOMEN: The upper abdomen is clear. There is no subphrenic gas. BONES AND SOFT TISSUES: No bone or soft tissue abnormalities are noted. OTHER: None. IMPRESSION: COPD WITH PULMONARY FIBROTIC CHANGES. <Electronically signed by Ajith Price MD in OV> 08/21/18 1018 Dictated By: Ajith Price MD Dictated Date/Time: 08/21/18 1018 Transcribed Date/Time: 08/21/18 1016 Copy to: CC:Kulwant Bowling DO; Jonathan Hayden MD; Romelia VALDEZ Imaging - [facility] Imaging - [facility] Urgent [facility] [address] [address] ph ([phone]) ph ([phone]) ph ([phone]) This report is only to be considered final once signed by the Provider(s) as displayed in the "<Electronically Signed by >" field (s). Absence of a signature indicates the report is in a draft status and still needs to be finalized. In the event this document was created by someone other than the signing Provider, the individual initiating the document will be listed in the "Entered by:" or "Dictated by:" jackson. 1 of 1 Assess/Plan/Problems-Billing Assessment: This is an 83 year old male with history of tobacco abuse and lung fibrosis that presented to Dr. Yang with complaints of SOB increasing over 2 weeks and was referred to ED for admission. - Patient Problems (1) COPD (chronic obstructive pulmonary disease) Comment: -much improvement; on baseline O2. Maintaining O2 sats with ambulation. - Follows with Dr. 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, susceptible to levaquin and bactrim, given advanced age and renal disease, levaquin would not be the optimal choice, placed on bactrim - for 5 more days - oral prednisone taper - Continue nebs and inhalers with flutter valve (2) CKD (chronic kidney disease) stage 3, GFR 30-59 ml/min Status: Acute Comment: - Creat 1.89, his baseline is around 2 (3) History of DVT of lower extremity Comment: - Continue renally dosed eliquis (4) History of coronary artery disease Comment: - Tachycardia resolved - Continue low dose BB - Restart diuretic at discharge (5) Hx MRSA infection Comment: - RLE wounds are closed - follow sputum culture Status and Disposition: Inpatient, much improvement last 48 hours, pt is stable for DC to home
[2018-08-25 16:12] VITALS: BP 154/79
--- NOTE | 2018-08-25 23:17 | DS ---
CC: Dr. Bowling; Dr. Yang* DISCHARGE SUMMARY: DATE OF ADMISSION: 08/21/18 DATE OF DISCHARGE: 08/25/18 PROVIDER: Jack Lopez NP ATTENDING PHYSICIAN: Dr. Peters* (report dictated by Jack Lopez NP). PRIMARY CARE PROVIDER: Dr. Bowling. DUMPER MOLD CLEANER: Dr. Yang. DISCHARGE DIAGNOSIS: Acute on chronic hypoxic respiratory failure secondary to chronic obstructive pulmonary disease exacerbation. SECONDARY DIAGNOSES: 1. History of coronary artery disease with questionable myocardial infarction in the past. 2. History of deep venous thrombosis diagnosed in December 2017, on Eliquis. 3. History of methicillin-resistant Staphylococcus aureus of the right lower extremity diagnosed in 2018, currently healed. 4. History of benign prostatic hypertrophy. 5. Gastroesophageal reflux disease. 6. Chronic kidney disease stage 3. DISCHARGE MEDICATIONS: 1. Ellipta 62.5/25 one puff INH daily. 2. ProAir 2 puffs INH q.6 hours p.r.n. 3. Metoprolol succinate XL 12.5 mg p.o. b.i.d. 4. Tramadol 50 mg p.o. q.6 hours p.r.n. 5. Flomax 0.4 mg p.o. daily. 6. Omeprazole 20 mg p.o. daily. 7. Multivitamin with minerals 1 tab p.o. daily. 8. Megestrol acetate 40 mg p.o. b.i.d. 9. Lasix 40 mg p.o. daily. 10. DuoNeb 2.5 mg/0.5 mg 1 neb INH q.6 hours p.r.n. (the patient dose of q.12 hours). 11. Potassium chloride 10 mEq 1 tab p.o. every other day. 12. BuSpar 10 mg 2 tabs p.o. b.i.d. p.r.n. 13. Soma 350 mg p.o. b.i.d. p.r.n. 14. Allopurinol 300 mg p.o. daily. Medication Change: Eliquis 2.5 mg p.o. b.i.d. (please note this was 5 mg, however, due to creatinine clearance, the patient was lowered down to the renal dose). New medications: 1. Bactrim 400/80 one tab p.o. b.i.d. x5 days. 2. Mucinex 600 mg p.o. b.i.d. x5 to 7 days. 3. Prednisone taper 60 mg p.o. daily, taper by 20 mg every 3 days and then stop. HISTORY OF PRESENT ILLNESS AND HOSPITAL COURSE: Please see history and physical by Sharon Jarrell NP, for full admission details, but in summary, this is an 83- year-old male with a past medical history as stated above, who presented to the emergency department on 08/21/18 with a chief complaint of shortness of breath, sent to the emergency room from Dr. Yang's office for concern for COPD exacerbation. The patient at that time reported a increase in sputum production, cough. As well, he also reported fevers on and off for the prior 2 weeks with increased fatigue and decreased appetite. At his baseline, he wears 3 L of oxygen via nasal cannula, normally in the low 90s; however, at home in the last couple of days, he was found to be about 86%. Due to the progressively worsening shortness of breath with his accompanying symptoms, the patient was admitted for acute on chronic hypoxic respiratory failure secondary to COPD exacerbation. The patient tested negative for influenza A and B. Chest x-ray was negative for any infiltrates or pneumonia. Impression was " COPD with pulmonary fibrotic changes." Blood cultures negative. The patient did grow Stenotrophomonas maltophilia in his sputum, which was sensitive to Levaquin and Bactrim. Due to his renal function, the patient was placed on Bactrim and which he will continue for the next 5 days. The patient remained afebrile throughout hospitalization, no noted leukocytosis on day of admission; however, he was noted to trend up on day 3 and 4 of admission, most likely secondary to steroids. Creatinine appears to be around baseline of 2. Negative urinalysis. As well, he had a negative legionella urinary antigen and negative Streptococcus pneumoniae urinary antigen. Today on discharge, the patient has been ambulating in the unit with his walker independently. He has maintained 02 sats on 3 L nasal cannula, maintaining between 92% and 97%. He reports this shortness of breath has resolved and he feels that he is at his baseline and is ready for discharge to home. His daughter is at the bedside who agrees the plan for discharge. The patient currently is in outpatient physical therapy twice a week; we discussed possibly increasing this to 3 times a week. The patient does report that he recently moved to the area from [place] and in the prior year has had 2 to 3 hospitalizations with subacute rehab and reports that his upper strength has gotten much better and he is able to get himself out of a chair easily; however , his lower extremities have been weak for the past year. He denies having falls. He does use a walker regularly at home and notes he is at high risk for falls. We also discussed the fact that he is on anticoagulation with Eliquis and that is very important he continues the outpatient physical therapy. DISCHARGE PLAN: 1. The patient is to follow up with his primary care provider, Dr. Bowling, within 5 to 7 days. Please note the patient prior to this acute episode was recently on prednisone taper and within 1 week he did have an increase in symptoms. I did discuss with the patient to being monitored closely as an outpatient. 2. Follow up with Dr. Yang within 1 month. The patient is stable for discharge to home. TIME SPENT: Approximately 60 minutes was spent on this discharge. JACK LOPEZ, RADHA [id number]/[facility] #: [id number] KEVIN
== END 2018-08-25 16:25 | disposition home or self-care (01) | DRG 189 ==
LOC: ED 09:19 → MEDTELE 12:28
PROVIDERS: ADMIT Internal Medicine; ATTEND Internal Medicine
DX: J96.21 Acute and chronic respiratory failure with hypoxia (principal); J44.1 Chronic obstructive pulmonary disease with (acute) exacerbation; N40.0 Benign prostatic hyperplasia without lower urinary tract symptoms; I25.10 Atherosclerotic heart disease of native coronary artery without angina pectoris; N18.3 Chronic kidney disease, stage 3 (moderate); R74.8 Abnormal levels of other serum enzymes; K21.9 Gastro-esophageal reflux disease without esophagitis; J84.10 Pulmonary fibrosis, unspecified; Z88.6 Allergy status to analgesic agent; Z88.5 Allergy status to narcotic agent; Z88.8 Allergy status to other drugs, medicaments and biological substances; Z87.891 Personal history of nicotine dependence; Z86.718 Personal history of other venous thrombosis and embolism; Z86.14 Personal history of Methicillin resistant Staphylococcus aureus infection; Z82.49 Family history of ischemic heart disease and other diseases of the circulatory system; Z80.0 Family history of malignant neoplasm of digestive organs; Z83.3 Family history of diabetes mellitus; Z80.1 Family history of malignant neoplasm of trachea, bronchus and lung
CPT/HCPCS: 36415; 71046; 80048; 80053; 80202; 81003; 83605; 83880; 84132; 84484; 85025; 85027; 85610; 86140; 87040; 87070; 87077; 87186; 87205; 87641; 87899; 93005; 94640; 99284; A9270-GY; G8978-GP-CK; G8979-GP-CI; J2543; J2920; J2930; J3370; J3475; J7512

== ENCOUNTER 2022-05-23 13:02 | Observation (INO) ==
[2022-05-23] MEDS ORDERED: Albuterol/Ipratropium NEB.SOL (2.5/0.5 MG) 3 ML NEB.SOLN INH ONE (14:04)
[2022-05-23 14:26] LABS: Hematocrit 34 % (42-52); Hemoglobin 10.7 g/dL (14.0-18.0); Mean Corpuscular HGB Conc 32 g/dL (31-36); Mean Corpuscular Hemoglobin 31 pg (27-31); Mean Corpuscular Volume 96 fL (80-94); Mean Platelet Volume 7.4 fL (7.4-10.4); Platelet Count 315 10^3/uL (150-450); Red Cell Distribution Width 15 % (10-15); White Blood Count 10.8 10^3/uL (3.5-10.8)
[2022-05-23 14:54] LABS: INR 1.13 (0.88-1.18)
[2022-05-23 15:16] LABS: Albumin 3.3 g/dL (3.2-5.2); Albumin/Globulin Ratio 1.2 (1-3); C Reactive Protein 9.41 mg/L (<8.01); Calcium 8.8 mg/dL (8.6-10.3); Creatinine, Serum 2.29 mg/dL (0.67-1.17); Globulin 2.8 g/dL (2-4); Magnesium 1.9 mg/dL (1.9-2.7); Total Bilirubin 0.2 mg/dL (0.2-1.0); Total Protein 6.1 g/dL (6.4-8.9); eGFR CKD-EPI 27.3 (>60)
[2022-05-23 15:21] LABS: Potassium 5.4 mmol/L (3.5-5.0)
[2022-05-23] MEDS ORDERED: cefTRIAXone 1 gm/50 mL D5W 1 GM/50 ML BAG IV ONE (15:55)
[2022-05-23] MEDS ORDERED: Albuterol HFA INHALER 8 gm MDI INH PRN (15:57)
[2022-05-23 16:20] LABS: High Sensitivity Troponin 1 Hr 20 pg/mL (<20)
[2022-05-23 17:45] LABS: ABS Basophils 0.1 10^3/ul (0-0.2); ABS Eosinophils 0.1 10^3/ul (0-0.6); ABS Lymphocytes 1.2 10^3/ul (1.0-4.8); ABS Monocytes 0.8 10^3/ul (0-0.8); ABS Neutrophils 8.7 10^3/ul (1.5-7.7); Eosinophil % 0.6 %
[2022-05-23] MEDS: Acetylcysteine INH SOL (RT) 200 MG/ML 4 ML VIAL INH SCH (19:37)
[2022-05-23 22:39] LABS: Urine Appearance Clear; Urine Bilirubin Negative (Negative); Urine Blood Negative (Negative); Urine Color Yellow; Urine Glucose Negative (Negative); Urine Ketones Negative (Negative); Urine Nitrite Negative (Negative); Urine Protein 2+(100 mg/dL) (Negative); Urine Specific Gravity 1.011 (1.002-1.030); Urine Urobilinogen Negative (Negative)
[2022-05-23 22:42] LABS: Urine Bacteria Absent (Absent); Urine Red Blood Cell Absent (Absent); Urine Squamous Epithelial Cell Present (Absent); Urine White Blood Cell Trace(0-5/hpf) (Absent); Urine Yeast Present (Absent)
[2022-05-24] MEDS: Acetylcysteine INH SOL (RT) 200 MG/ML 4 ML VIAL INH SCH ×3 (04:40→19:15)
[2022-05-24] MEDS: Albuterol/Ipratropium NEB.SOL (2.5/0.5 MG) 3 ML NEB.SOLN INH PRN ×4 (07:12→19:15)
[2022-05-24] MEDS: FLUTICAS/UMECLI/VILANT 100-62.5-25 MDI (NF) INH SCH (07:20)
[2022-05-24 07:37] LABS: Hematocrit 31 % (42-52); Hemoglobin 10.3 g/dL (14.0-18.0); Mean Corpuscular HGB Conc 33 g/dL (31-36); Mean Corpuscular Hemoglobin 31 pg (27-31); Mean Corpuscular Volume 95 fL (80-94); Mean Platelet Volume 7.5 fL (7.4-10.4); Platelet Count 315 10^3/uL (150-450); Red Blood Count 3.29 10^6 /uL (4.18-5.48); Red Cell Distribution Width 14 % (10-15); White Blood Count 10.4 10^3/uL (3.5-10.8)
[2022-05-24 08:10] LABS: Calcium 8.6 mg/dL (8.6-10.3); Creatinine, Serum 2.1 mg/dL (0.67-1.17); Potassium 4.6 mmol/L (3.5-5.0); eGFR CKD-EPI 30.3 (>60)
[2022-05-24 09:29] LABS: ABS Basophils 0.1 10^3/ul (0-0.2); ABS Eosinophils 0.3 10^3/ul (0-0.6); ABS Lymphocytes 2.6 10^3/ul (1.0-4.8); ABS Monocytes 1.3 10^3/ul (0-0.8); ABS Neutrophils 6.1 10^3/ul (1.5-7.7); Eosinophil % 3.3 %; Lymphocyte % 24.9 %
[2022-05-24] MEDS ORDERED: cefTRIAXone 1 gm/50 mL D5W 1 GM/50 ML BAG IV SCH (15:30)
[2022-05-25] MEDS: Albuterol/Ipratropium NEB.SOL (2.5/0.5 MG) 3 ML NEB.SOLN INH PRN (07:49)
[2022-05-25] MEDS: Acetylcysteine INH SOL (RT) 200 MG/ML 4 ML VIAL INH SCH (07:49)
[2022-05-25] MEDS: FLUTICAS/UMECLI/VILANT 100-62.5-25 MDI (NF) INH SCH (08:20)
[2022-05-25 11:27] VITALS: BP 121/64
== END 2022-05-25 13:21 ==
LOC: ED 13:02 → EDHOLD 13:02 → SUATTDRO 15:52 → MEDTELE 19:32
PROVIDERS: ADMIT Internal Medicine; ATTEND Internal Medicine

== ENCOUNTER 2023-07-09 18:57 | Observation (INO) ==
[2023-07-09 20:37] LABS: ABS Basophils 0.1 10^3/uL (0.0-0.1); ABS Lymphocytes 1.7 10^3/uL (1.0-4.8); ABS Monocytes 1.3 10^3/uL (0.0-1.1); ABS Neutrophils 9.1 10^3/uL (1.5-7.6); Hematocrit 35.3 % (38-53); Hemoglobin 11.6 g/dL (13.2-16.3); Lymphocyte % 13.6 %; Mean Corpuscular Hemoglobin 30.6 pg (27-33); Mean Corpuscular Volume 92.7 fL (80-97); Mean Platelet Volume 9.3 fL (7.5-11.2); Platelet Count 139 10^3/uL (150-450); Red Blood Count 3.81 10^6/uL (4.06-5.63); Red Cell Distribution Width 13.4 % (12-17); White Blood Count 12.1 10^3/uL (3.6-10.2)
[2023-07-09 21:44] LABS: Albumin 3.3 g/dL (3.2-5.2); Albumin/Globulin Ratio 0.8 (1-3); Calcium 8.4 mg/dL (8.6-10.3); Creatinine, Serum 3.02 mg/dL (0.67-1.17); Globulin 3.9 g/dL (2-4); Magnesium 1.8 mg/dL (1.9-2.7); Total Bilirubin 0.4 mg/dL (0.2-1.0); Total Protein 7.2 g/dL (6.4-8.9); eGFR CKD-EPI 19.5 (>60)
[2023-07-09] MEDS: NS 0.9% 1000 ml BAG 1,000 ML IV SCH ×2 (22:40→23:17)
[2023-07-09 23:24] LABS: Urine Appearance Clear; Urine Bilirubin Negative (Negative); Urine Blood Negative (Negative); Urine Color Light-Yellow; Urine Glucose Negative (Negative); Urine Ketones Negative (Negative); Urine Nitrite Negative (Negative); Urine Protein 1+ (>=30 mg/dL) (Negative); Urine Specific Gravity 1.013 (1.002-1.030); Urine Urobilinogen Negative (Negative)
[2023-07-09 23:38] LABS: Urine Bacteria Absent /HPF (Absent); Urine Red Blood Cell Trace(0-2/hpf) /HPF (0-Trace); Urine White Blood Cell Trace(0-5/hpf) /HPF (0-Trace)
[2023-07-10] MEDS ORDERED: Albuterol HFA INHALER 8 gm MDI INH PRN (00:56)
[2023-07-10] MEDS: NS 0.9% 1000 ml BAG 1,000 ML IV SCH (01:34)
[2023-07-10] MEDS: Magnesium Sulfate IV 1GM/100ML 1 GM/100 ML BAG IV ONE (03:18)
[2023-07-10] MEDS: Albuterol/Ipratropium NEB.SOL (2.5/0.5 MG) 3 ML NEB.SOLN INH SCH (03:42)
[2023-07-10] MEDS: FLUTICAS/UMECLI/VILANT 100-62.5-25 MDI (NF) INH SCH (07:42)
[2023-07-10] MEDS: Albuterol/Ipratropium NEB.SOL (2.5/0.5 MG) 3 ML NEB.SOLN INH PRN (07:53)
[2023-07-10] MEDS: Acetylcysteine ORAL SOL 200 mg/ml 30 ml VIAL INH SCH (07:59)
[2023-07-10 08:41] LABS: ABS Lymphocytes 2.3 10^3/uL (1.0-4.8); ABS Neutrophils 6.7 10^3/uL (1.5-7.6); Hematocrit 30.5 % (38-53); Hemoglobin 10.1 g/dL (13.2-16.3); Lymphocyte % 23.1 %; Mean Corpuscular Hemoglobin 30.7 pg (27-33); Mean Corpuscular Volume 92.9 fL (80-97); Mean Platelet Volume 9.4 fL (7.5-11.2); Platelet Count 131 10^3/uL (150-450); Red Blood Count 3.28 10^6/uL (4.06-5.63); Red Cell Distribution Width 13.3 % (12-17)
[2023-07-10] MEDS: Vitamin THERAPEUTIC TAB PO SCH (09:14)
[2023-07-10 09:40] LABS: Creatinine, Serum 2.86 mg/dL (0.67-1.17); Potassium 4.7 mmol/L (3.5-5.0); eGFR CKD-EPI 20.8 (>60)
[2023-07-11 05:30] LABS: ABS Lymphocytes 1.2 10^3/uL (1.0-4.8); ABS Monocytes 0.9 10^3/uL (0.0-1.1); ABS Neutrophils 6.7 10^3/uL (1.5-7.6); Hematocrit 30.1 % (38-53); Hemoglobin 9.9 g/dL (13.2-16.3); Mean Corpuscular Hemoglobin 30.5 pg (27-33); Mean Corpuscular Hgb Conc 32.9 g/dL (31-36); Mean Corpuscular Volume 92.6 fL (80-97); Mean Platelet Volume 9.2 fL (7.5-11.2); Platelet Count 159 10^3/uL (150-450); Red Blood Count 3.25 10^6/uL (4.06-5.63); Red Cell Distribution Width 13.6 % (12-17); White Blood Count 8.8 10^3/uL (3.6-10.2)
[2023-07-11 06:04] LABS: Calcium 7.6 mg/dL (8.6-10.3); Creatinine, Serum 2.34 mg/dL (0.67-1.17); Potassium 4.6 mmol/L (3.5-5.0); eGFR CKD-EPI 26.4 (>60)
[2023-07-11] MEDS: guaiFENesin 100 mg/5 ml LIQ unit dose cup PO PRN (09:36)
[2023-07-11] MEDS ORDERED: Acetylcysteine ORAL SOL 200 mg/ml 30 ml VIAL INH PRN (09:51)
[2023-07-11] MEDS: Furosemide 40 mg/4 ml IV VIAL IV SLOW PU SCH (13:19)
[2023-07-11] MEDS: Albuterol/Ipratropium NEB.SOL (2.5/0.5 MG) 3 ML NEB.SOLN INH SCH (15:02)
[2023-07-11] MEDS ORDERED: Albuterol/Ipratropium NEB.SOL (2.5/0.5 MG) 3 ML NEB.SOLN INH PRN (15:22)
[2023-07-11] MEDS: Albuterol HFA INHALER 8 gm MDI INH SCH (19:29)
[2023-07-12] MEDS: Acetylcysteine ORAL SOL 200 mg/ml 30 ml VIAL INH SCH (01:36)
[2023-07-12] MEDS: Albuterol/Ipratropium NEB.SOL (2.5/0.5 MG) 3 ML NEB.SOLN INH SCH (08:07)
[2023-07-12 10:02] VITALS: BP 131/65
[2023-07-12] MEDS ORDERED: Albuterol HFA INHALER 8 gm MDI INH PRN (12:58)
== END 2023-07-12 13:42 ==
LOC: EDHOLD 18:57 → ED 18:57 → SUATTDRO 07-10 00:36 → MEDTELE 07-10 14:03
PROVIDERS: ADMIT Hospitalist; ATTEND Hospitalist

== ENCOUNTER 2024-01-24 13:04 | Inpatient (IN) ==
[2024-01-24 13:58] LABS: ABS Basophils 0.1 10^3/uL (0.0-0.1); ABS Eosinophils 0.2 10^3/uL (0.0-0.5); ABS Lymphocytes 1.9 10^3/uL (1.0-4.8); ABS Monocytes 1.2 10^3/uL (0.0-1.1); ABS Neutrophils 5.3 10^3/uL (1.5-7.6); ABS Nucleated RBC 0.01 10^3/ul; Eosinophil % 2.4 %; Hematocrit 30.7 % (38-53); Hemoglobin 10.2 g/dL (13.2-16.3); Mean Corpuscular Hemoglobin 29.7 pg (27-33); Mean Corpuscular Hgb Conc 33.3 g/dL (31-36); Mean Corpuscular Volume 89.1 fL (80-97); Mean Platelet Volume 7.7 fL (7.5-11.2); Nucleated Red Blood Cells % 0.1 %/100WBC (0.0-0.8); Platelet Count 317 10^3/uL (150-450); Red Blood Count 3.45 10^6/uL (4.06-5.63); Red Cell Distribution Width 13.9 % (12-17); White Blood Count 8.7 10^3/uL (3.6-10.2)
[2024-01-24 14:34] LABS: Albumin 3.7 g/dL (3.2-5.2); Calcium 8.9 mg/dL (8.6-10.3); Creatinine, Serum 3.06 mg/dL (0.67-1.17); Globulin 3.6 g/dL (2-4); Potassium 4.3 mmol/L (3.5-5.0); Total Bilirubin 0.3 mg/dL (0.2-1.0); Total Protein 7.3 g/dL (6.4-8.9); eGFR CKD-EPI 19.2 (>60)
[2024-01-24 15:16] LABS: High Sensitivity Troponin 1 Hr 13 pg/mL (<20)
[2024-01-24] MEDS: Piperacillin/Tazobac 3.375 BAG 3.375 GM/100 ML BAG IV ONE (16:03)
[2024-01-24] MEDS ORDERED: Albuterol HFA INHALER 8 gm MDI INH PRN (18:14)
[2024-01-24] MEDS: Vancomycin 1,000 MG in NS 0.9% 250 ml 250 ML IVPB ONE (18:41)
[2024-01-24] MEDS ORDERED: Zosyn per Pharmacy NOTE FOLLOW UP SCH (19:00)
[2024-01-24] MEDS ORDERED: Vancomycin per Pharmacy 1 EA NOTE FOLLOW UP SCH (19:00)
[2024-01-24] MEDS: Albuterol/Ipratropium NEB.SOL (2.5/0.5 MG) 3 ML NEB.SOLN INH SCH (19:54)
[2024-01-24] MEDS: ZOSYN 3.375 GM Q8H per EXTENDED INFUSION IV SCH (20:17)
[2024-01-25] MEDS: Tranexamic Acid 1,000 MG/10 ML SDV INH SCH ×3 (00:30→13:39)
[2024-01-25] MEDS ORDERED: Albuterol/Ipratropium NEB.SOL (2.5/0.5 MG) 3 ML NEB.SOLN INH PRN (01:15)
[2024-01-25] MEDS: Albuterol/Ipratropium NEB.SOL (2.5/0.5 MG) 3 ML NEB.SOLN INH SCH (02:06)
[2024-01-25] MEDS: Acetylcysteine ORAL SOL 200 mg/ml 30 ml VIAL INH SCH (02:10)
[2024-01-25 02:13] LABS: Activated Partial Thrombo Time 30.6 seconds (26.0-38.0); INR 1.09 (0.85-1.14)
[2024-01-25] MEDS: DOXYcycline 100 MG in NS 0.9% 250 ml 250 ML IVPB SCH (04:04)
[2024-01-25] MEDS ORDERED: FLUTICAS/UMECLI/VILANT 100-62.5-25 MDI (NF) INH SCH (09:00)
[2024-01-25] MEDS: OLOPATADINE 0.7% BOTH EYES SCH (09:36)
[2024-01-25] MEDS: CMCS: Roflumilast 500 mcg TAB (NF) PO SCH (09:37)
[2024-01-25 14:24] LABS: Hematocrit 27.9 % (38-53); Hemoglobin 9.3 g/dL (13.2-16.3)
[2024-01-25] MEDS: cefTRIAXone 1 gm/50 mL D5W 1 GM/50 ML BAG IV SCH (17:10)
[2024-01-25] MEDS: Acetylcysteine INH SOL (RT) 200 MG/ML 4 ML VIAL INH SCH (19:31)
[2024-01-26 06:10] LABS: ABS Basophils 0.1 10^3/uL (0.0-0.1); ABS Eosinophils 0.4 10^3/uL (0.0-0.5); ABS Monocytes 1.5 10^3/uL (0.0-1.1); ABS Neutrophils 7.1 10^3/uL (1.5-7.6); Eosinophil % 3.5 %; Hematocrit 25.2 % (38-53); Hemoglobin 8.5 g/dL (13.2-16.3); Lymphocyte % 17.7 %; Mean Corpuscular Hemoglobin 30.2 pg (27-33); Mean Corpuscular Hgb Conc 33.7 g/dL (31-36); Mean Corpuscular Volume 89.6 fL (80-97); Mean Platelet Volume 7.7 fL (7.5-11.2); Platelet Count 243 10^3/uL (150-450); Red Blood Count 2.81 10^6/uL (4.06-5.63); Red Cell Distribution Width 13.7 % (12-17)
[2024-01-26 06:28] LABS: Calcium 8.5 mg/dL (8.6-10.3); Magnesium 2.2 mg/dL (1.9-2.7); Phosphorus 4.1 mg/dL (2.5-5.0); Potassium 4.2 mmol/L (3.5-5.0); eGFR CKD-EPI 19.6 (>60)
[2024-01-26] MEDS ORDERED: Ondansetron ODT 4 mg TAB 4 MG TAB PO PRN (07:25)
[2024-01-26] MEDS ORDERED: Zosyn per Pharmacy NOTE FOLLOW UP SCH (08:00)
[2024-01-26] MEDS: Piperacillin/Tazobac 3.375 BAG 3.375 GM/100 ML BAG IV ONE (08:26)
[2024-01-26] MEDS: ZOSYN 3.375 GM Q12H per EXTENDED INFUSION IV SCH (13:46)
[2024-01-27 06:13] LABS: ABS Basophils 0.1 10^3/uL (0.0-0.1); ABS Eosinophils 0.4 10^3/uL (0.0-0.5); ABS Lymphocytes 1.7 10^3/uL (1.0-4.8); ABS Monocytes 1.3 10^3/uL (0.0-1.1); ABS Neutrophils 5.7 10^3/uL (1.5-7.6); Eosinophil % 4.8 %; Hematocrit 24.8 % (38-53); Hemoglobin 8.3 g/dL (13.2-16.3); Lymphocyte % 18.9 %; Mean Corpuscular Hgb Conc 33.5 g/dL (31-36); Mean Corpuscular Volume 89.5 fL (80-97); Mean Platelet Volume 7.5 fL (7.5-11.2); Platelet Count 217 10^3/uL (150-450); Red Blood Count 2.77 10^6/uL (4.06-5.63); White Blood Count 9.3 10^3/uL (3.6-10.2)
[2024-01-27 07:04] LABS: Calcium 8.4 mg/dL (8.6-10.3); Creatinine, Serum 2.98 mg/dL (0.67-1.17); Potassium 4.5 mmol/L (3.5-5.0); eGFR CKD-EPI 19.8 (>60)
[2024-01-28 07:42] LABS: ABS Lymphocytes 1.5 10^3/uL (1.0-4.8); ABS Monocytes 1.2 10^3/uL (0.0-1.1); ABS Neutrophils 7.7 10^3/uL (1.5-7.6); Eosinophil % 0.1 %; Hematocrit 23.6 % (38-53); Hemoglobin 7.9 g/dL (13.2-16.3); Lymphocyte % 14.2 %; Mean Corpuscular Hgb Conc 33.6 g/dL (31-36); Mean Corpuscular Volume 89.5 fL (80-97); Mean Platelet Volume 8.3 fL (7.5-11.2); Platelet Count 221 10^3/uL (150-450); Red Blood Count 2.63 10^6/uL (4.06-5.63); Red Cell Distribution Width 14.2 % (12-17); White Blood Count 10.3 10^3/uL (3.6-10.2)
[2024-01-28 07:47] LABS: Calcium 8.5 mg/dL (8.6-10.3); Creatinine, Serum 2.84 mg/dL (0.67-1.17); Potassium 4.6 mmol/L (3.5-5.0); eGFR CKD-EPI 20.9 (>60)
[2024-01-28 13:06] LABS: Hematocrit 26.5 % (38-53); Hemoglobin 8.8 g/dL (13.2-16.3)
[2024-01-28] MEDS: Cefepime 2 GM in Dextrose 2 GM/50 ML BAG IV SCH (15:19)
[2024-01-29 14:27] LABS: QuantiferonTb Gold Plus Result Negative (Negative)
[2024-01-29] MEDS: Lidocaine 1% MPF 5 ML VIAL INJ ONE (22:14)
[2024-01-30 09:48] LABS: Rapid COVID-19 Molecular Undetected (Undetected)
[2024-01-30 09:58] VITALS: BP 139/80
== END 2024-01-30 13:45 | DRG 177 ==
LOC: EDHOLD 13:04 → ED 13:04 → MEDTELE 21:07 → MED 21:29 → SUATTDRO 01-25 13:55 → MED 01-30 08:05
PROVIDERS: ADMIT Hospitalist; ATTEND Hospitalist

== ENCOUNTER 2024-02-23 01:29 | Inpatient (IN) ==
[2024-02-23 02:20] LABS: ABS Eosinophils 0.2 10^3/uL (0.0-0.5); ABS Lymphocytes 1.8 10^3/uL (1.0-4.8); ABS Monocytes 1.2 10^3/uL (0.0-1.1); ABS Neutrophils 6.4 10^3/uL (1.5-7.6); Eosinophil % 2.3 %; Hematocrit 30.3 % (38-53); Hemoglobin 9.8 g/dL (13.2-16.3); Lymphocyte % 18.7 %; Mean Corpuscular Hemoglobin 29.4 pg (27-33); Mean Corpuscular Hgb Conc 32.5 g/dL (31-36); Mean Corpuscular Volume 90.5 fL (80-97); Mean Platelet Volume 7.6 fL (7.5-11.2); Platelet Count 329 10^3/uL (150-450); Red Blood Count 3.35 10^6/uL (4.06-5.63); Red Cell Distribution Width 13.6 % (12-17); White Blood Count 9.8 10^3/uL (3.6-10.2)
[2024-02-23 02:26] LABS: INR 1.13 (0.85-1.14)
[2024-02-23] MEDS: Albuterol/Ipratropium NEB.SOL (2.5/0.5 MG) 3 ML NEB.SOLN INH ONE (02:39)
[2024-02-23 03:00] LABS: Albumin 3.5 g/dL (3.2-5.2); Calcium 8.9 mg/dL (8.6-10.3); Creatinine, Serum 3.89 mg/dL (0.67-1.17); Globulin 3.5 g/dL (2-4); Potassium 4.3 mmol/L (3.5-5.0); Total Bilirubin 0.4 mg/dL (0.2-1.0); eGFR CKD-EPI 14.4 (>60)
[2024-02-23] MEDS: Dexamethasone IV 4 MG/ML VIAL 1 ml VIAL IV SLOW PU ONE (03:17)
[2024-02-23 03:45] LABS: High Sensitivity Troponin 1 Hr 14 pg/mL (<20)
[2024-02-23] MEDS ORDERED: Albuterol 2.5mg/3 ml (0.083%) NEB.SOLN INH PRN (05:54)
[2024-02-23 06:16] LABS: Magnesium 2.2 mg/dL (1.9-2.7)
[2024-02-23] MEDS ORDERED: Senna TAB 8.6 mg TAB PO PRN (06:25)
[2024-02-23] MEDS ORDERED: Polyethylene Glycol 3350 17 GM PACKET PO PRN (06:25)
[2024-02-23] MEDS ORDERED: Sulfur Hexaflouride MICROSPHR 25 MG VIAL IV PRN (06:29)
[2024-02-23] MEDS ORDERED: Ondansetron 4 mg VIAL 2 MG/ML 2 ml VIAL IV PRN (06:44)
[2024-02-23] MEDS: Metoprolol Tartrate 5 mg VIAL 5 ml VIAL (1 mg/ml) IV ONE (07:06)
[2024-02-23] MEDS: Cefepime 2 GM in Dextrose 2 GM/50 ML BAG IV SCH (07:07)
[2024-02-23 07:28] LABS: C Reactive Protein 45.08 mg/L (<8.01)
[2024-02-23] MEDS: CMCS: Roflumilast 500 mcg TAB (NF) PO SCH (09:55)
[2024-02-23] MEDS: Heparin 5000 UNITS/ML 1 mL VIAL SUBCUT SCH (09:56)
[2024-02-23] MEDS: CMCS: FLUTICAS/UMECLI/VILANT 100-62.5-25 MDI (NF) INH SCH (13:41)
[2024-02-23] MEDS: Cefepime 1 GM in Dextrose 1 GM/50 ML BAG IV SCH (17:33)
[2024-02-23] MEDS: Albuterol/Ipratropium NEB.SOL (2.5/0.5 MG) 3 ML NEB.SOLN INH PRN (22:03)
[2024-02-24 05:45] LABS: ABS Lymphocytes 1.2 10^3/uL (1.0-4.8); ABS Monocytes 1.4 10^3/uL (0.0-1.1); ABS Neutrophils 6.5 10^3/uL (1.5-7.6); Eosinophil % 0.2 %; Hematocrit 27.2 % (38-53); Lymphocyte % 13.2 %; Mean Corpuscular Hemoglobin 29.8 pg (27-33); Mean Corpuscular Hgb Conc 33.2 g/dL (31-36); Mean Corpuscular Volume 89.9 fL (80-97); Mean Platelet Volume 7.5 fL (7.5-11.2); Platelet Count 301 10^3/uL (150-450); Red Blood Count 3.03 10^6/uL (4.06-5.63); Red Cell Distribution Width 13.6 % (12-17); White Blood Count 9.2 10^3/uL (3.6-10.2)
[2024-02-24 06:32] LABS: Calcium 8.7 mg/dL (8.6-10.3); Creatinine, Serum 3.75 mg/dL (0.67-1.17); Magnesium 2.3 mg/dL (1.9-2.7); Potassium 4.9 mmol/L (3.5-5.0)
[2024-02-24] MEDS: Metoprolol Tartrate 5 mg VIAL 5 ml VIAL (1 mg/ml) IV ONE ×2 (08:02→11:47)
[2024-02-24] MEDS: Morphine 2 MG/ML SYRINGE IV ONE (08:45)
[2024-02-24] MEDS: Albuterol 2.5mg/3 ml (0.083%) NEB.SOLN INH SCH (09:18)
[2024-02-24 09:29] LABS: C Reactive Protein 78.43 mg/L (<8.01)
[2024-02-24 10:15] LABS: High Sensitivity Troponin 1 Hr 16 pg/mL (<20)
[2024-02-24] MEDS: Albuterol/Ipratropium NEB.SOL (2.5/0.5 MG) 3 ML NEB.SOLN INH SCH (12:54)
[2024-02-25 06:19] LABS: ABS Basophils 0.1 10^3/uL (0.0-0.1); ABS Eosinophils 0.1 10^3/uL (0.0-0.5); ABS Lymphocytes 1.4 10^3/uL (1.0-4.8); ABS Monocytes 1.3 10^3/uL (0.0-1.1); ABS Neutrophils 4.4 10^3/uL (1.5-7.6); ABS Nucleated RBC 0.01 10^3/ul; Eosinophil % 2.1 %; Hematocrit 26.4 % (38-53); Hemoglobin 8.6 g/dL (13.2-16.3); Lymphocyte % 18.9 %; Mean Corpuscular Hemoglobin 29.7 pg (27-33); Mean Corpuscular Hgb Conc 32.7 g/dL (31-36); Mean Corpuscular Volume 90.6 fL (80-97); Nucleated Red Blood Cells % 0.1 %/100WBC (0.0-0.8); Platelet Count 274 10^3/uL (150-450); Red Blood Count 2.91 10^6/uL (4.06-5.63); Red Cell Distribution Width 13.7 % (12-17); White Blood Count 7.3 10^3/uL (3.6-10.2)
[2024-02-25 06:37] LABS: Calcium 8.5 mg/dL (8.6-10.3); Creatinine, Serum 3.84 mg/dL (0.67-1.17); Magnesium 2.1 mg/dL (1.9-2.7); Potassium 5.2 mmol/L (3.5-5.0); eGFR CKD-EPI 14.6 (>60)
[2024-02-25] MEDS ORDERED: Albuterol/Ipratropium NEB.SOL (2.5/0.5 MG) 3 ML NEB.SOLN INH PRN (07:19)
[2024-02-25] MEDS: Albuterol 2.5mg/3 ml (0.083%) NEB.SOLN INH PRN (15:53)
[2024-02-25] MEDS: Morphine 2 MG/ML SYRINGE IV PRN (15:53)
[2024-02-25] MEDS: Metoprolol Tartrate 5 mg VIAL 5 ml VIAL (1 mg/ml) IV ONE (17:43)
[2024-02-25] MEDS: NS 0.9% 500 ml BAG 500 ML IV ONE ×2 (19:56→21:13)
[2024-02-25 20:59] LABS: Calcium 8.4 mg/dL (8.6-10.3); Creatinine, Serum 4.02 mg/dL (0.67-1.17); Magnesium 2.1 mg/dL (1.9-2.7); Potassium 4.4 mmol/L (3.5-5.0); eGFR CKD-EPI 13.8 (>60)
[2024-02-25] MEDS: Digoxin IV 0.5 MG/2 ML AMP (0.25 MG/ML) IV SLOW PU ONE (22:45)
[2024-02-26 00:01] LABS: High Sensitivity Troponin 1 Hr 11 pg/mL (<20)
[2024-02-26 06:33] LABS: Hematocrit 24.6 % (38-53); Hemoglobin 8.1 g/dL (13.2-16.3); Mean Corpuscular Hemoglobin 29.5 pg (27-33); Mean Corpuscular Hgb Conc 32.8 g/dL (31-36); Platelet Count 265 10^3/uL (150-450); Red Blood Count 2.73 10^6/uL (4.06-5.63); Red Cell Distribution Width 13.7 % (12-17); White Blood Count 9.1 10^3/uL (3.6-10.2)
[2024-02-26 06:57] LABS: Calcium 8.2 mg/dL (8.6-10.3); Creatinine, Serum 3.88 mg/dL (0.67-1.17); Potassium 4.9 mmol/L (3.5-5.0); eGFR CKD-EPI 14.4 (>60)
[2024-02-26 07:25] LABS: ABS Eosinophils 0.1 10^3/uL (0.0-0.5); ABS Lymphocytes 1.1 10^3/uL (1.0-4.8); ABS Monocytes 1.8 10^3/uL (0.0-1.1); ABS Neutrophils 6.1 10^3/uL (1.5-7.6); Lymphocyte % 12.4 %
[2024-02-26] MEDS: NS 0.9% 1000 ml BAG 1,000 ML IV SCH (08:45)
[2024-02-26 14:21] LABS: Urine Appearance Clear; Urine Bilirubin Negative (Negative); Urine Blood Trace (Negative); Urine Color Light-Yellow; Urine Glucose Negative (Negative); Urine Ketones Trace (Negative); Urine Nitrite Negative (Negative); Urine Protein 1+ (>=30 mg/dL) (Negative); Urine Specific Gravity 1.013 (1.002-1.030); Urine Urobilinogen Negative (Negative)
[2024-02-26 14:27] LABS: Urine Bacteria 1+ /HPF (Absent); Urine Red Blood Cell Absent /HPF (0-Trace); Urine Squamous Epithelial Cell Present /HPF (Absent); Urine White Blood Cell Trace(0-5/hpf) /HPF (0-Trace)
[2024-02-27 06:10] LABS: ABS Eosinophils 0.3 10^3/uL (0.0-0.5); ABS Lymphocytes 1.2 10^3/uL (1.0-4.8); ABS Neutrophils 2.9 10^3/uL (1.5-7.6); Eosinophil % 5.1 %; Hematocrit 23.4 % (38-53); Hemoglobin 7.8 g/dL (13.2-16.3); Lymphocyte % 21.9 %; Mean Corpuscular Hemoglobin 30.2 pg (27-33); Mean Corpuscular Hgb Conc 33.3 g/dL (31-36); Mean Corpuscular Volume 90.6 fL (80-97); Mean Platelet Volume 7.9 fL (7.5-11.2); Platelet Count 232 10^3/uL (150-450); Red Blood Count 2.58 10^6/uL (4.06-5.63); Red Cell Distribution Width 13.8 % (12-17); White Blood Count 5.5 10^3/uL (3.6-10.2)
[2024-02-27 06:29] LABS: Calcium 8.3 mg/dL (8.6-10.3); Creatinine, Serum 3.32 mg/dL (0.67-1.17); Potassium 4.7 mmol/L (3.5-5.0); eGFR CKD-EPI 17.4 (>60)
[2024-02-28 06:29] LABS: ABS Basophils 0.1 10^3/uL (0.0-0.1); ABS Eosinophils 0.3 10^3/uL (0.0-0.5); ABS Lymphocytes 1.4 10^3/uL (1.0-4.8); ABS Monocytes 0.9 10^3/uL (0.0-1.1); ABS Neutrophils 2.8 10^3/uL (1.5-7.6); Eosinophil % 5.2 %; Hematocrit 23.8 % (38-53); Lymphocyte % 25.5 %; Mean Corpuscular Hemoglobin 30.3 pg (27-33); Mean Corpuscular Hgb Conc 33.5 g/dL (31-36); Mean Corpuscular Volume 90.4 fL (80-97); Mean Platelet Volume 7.5 fL (7.5-11.2); Platelet Count 260 10^3/uL (150-450); Red Blood Count 2.63 10^6/uL (4.06-5.63); Red Cell Distribution Width 13.8 % (12-17); White Blood Count 5.5 10^3/uL (3.6-10.2)
[2024-02-28 06:55] LABS: Calcium 8.5 mg/dL (8.6-10.3); Creatinine, Serum 2.64 mg/dL (0.67-1.17); Magnesium 1.8 mg/dL (1.9-2.7); Potassium 4.7 mmol/L (3.5-5.0); eGFR CKD-EPI 22.9 (>60)
[2024-02-28] MEDS: Magnesium Sulfate 2 gm BAG 2 GM/50 ML BAG IVPB ONE (08:26)
[2024-02-28] MEDS: Metoprolol Tartrate 5 mg VIAL 5 ml VIAL (1 mg/ml) IV PRN (09:21)
[2024-02-28] MEDS: Digoxin IV 0.5 MG/2 ML AMP (0.25 MG/ML) IV SLOW PU ONE (10:42)
[2024-02-29 05:25] VITALS: BP 141/50
[2024-02-29 12:26] LABS: Rapid COVID-19 Molecular Undetected (Undetected)
== END 2024-02-29 14:37 | DRG 178 ==
LOC: ED 01:29 → EDHOLD 05:48 → ICU 07:13 → MEDTELE 08:07
PROVIDERS: ADMIT Internal Medicine Critical Care Medicine; ATTEND Internal Medicine